=== PATIENT | male | born 1965 | race Caucasian/White ===

== ENCOUNTER 2018-02-28 21:08 | Inpatient (IN) | payer OTHER ==
[2018-02-28 21:26] LABS: ADD MAN DIFF? NO
[2018-02-28 21:29] LABS: BASOPHILS % 0.3 % (0.0-2.0); EOSINOPHILS % 0.5 % (0.0-7.0); HEMATOCRIT 39.2 % (42.0-52.0); HEMOGLOBIN 13.3 g/dl (14.0-18.0); LYMPHOCYTES # 0.9 10^3/ul (0.8-2.9); LYMPHOCYTES % 15.5 % (15.0-51.0); MEAN CORPUSCULAR HGB CONC 33.9 g/dl (32.0-37.0); MEAN CORPUSCULAR VOLUME 97.3 fl (82.0-101.0); MEAN PLATELET VOLUME 9.4 fl (7.4-10.4); MONOCYTE # 0.4 10^3/ul (0.3-0.9); MONOCYTES % 7.2 % (0.0-11.0); NEUTROPHIL # 4.6 10^3/ul (1.6-7.5); NEUTROPHILS % 76.2 % (39.0-77.0); PLATELET COUNT 184 10^3/UL (140-415); RED BLOOD COUNT 4.03 10^6/ul (4.70-6.10)
[2018-02-28] MEDS: SOD CHLORIDE 0.9% 1,000 ML IV (21:37)
[2018-02-28] MEDS: ONDANSETRON 4 MG INJ IV (21:37)
[2018-02-28] MEDS: LACTULOSE 30ML CUP NGT (21:37)
[2018-02-28 21:40] LABS: ADD UMIC YES; UR ASCORBIC ACID 40 mg/dL (NEGATIVE); UR BILIRUBIN (Dip) NEGATIVE (NEGATIVE); UR BLOOD (Dip) NEGATIVE (NEGATIVE); UR CLARITY CLEAR (CLEAR); UR COLOR YELLOW (YELLOW); UR GLUCOSE (Dip) 1+ mg/dL (NEGATIVE); UR KETONES (Dip) TRACE mg/dL (NEGATIVE); UR LEUKOCYTE ESTERASE (Dip) NEGATIVE Leu/ul (NEGATIVE); UR NITRITE (Dip) NEGATIVE (NEGATIVE); UR RBC 0 /HPF (0-5); UR SPECIFIC GRAVITY (Dip) 1.016 (1.003-1.030); UR TOTAL PROTEIN (Dip) 3+ mg/dl (NEGATIVE); UR UROBILINOGEN (Dip) NEGATIVE (NEGATIVE); UR WBC 1 /HPF (0-5)
[2018-02-28 21:49] LABS: AMMONIA 17 umol/l (9-30)
[2018-02-28 21:49] LABS: LACTIC ACID 1.3 mmol/L (0.5-2.0)
[2018-02-28 22:15] LABS: ALANINE AMINOTRANSFERASE 32 IU/L (13-69); ALBUMIN 3.4 g/dl (3.3-4.9); ALBUMIN/GLOBULIN RATIO 0.97; ALKALINE PHOSPHATASE 122 IU/L (42-121); ANION GAP 16 (8-16); ASPARTATE AMINO TRANSFERASE 29 IU/L (15-46); BILIRUBIN,INDIRECT 0.1 mg/dl (0-1.1); BILIRUBIN,TOTAL 0.1 mg/dl (0.2-1.3); BLOOD UREA NITROGEN 35 mg/dl (7-20); CALCIUM 9.2 mg/dl (8.4-10.2); CARBON DIOXIDE 25 mmol/L (21-31); CHLORIDE 109 mmol/L (97-110); CREATININE 2.36 mg/dl (0.61-1.24); GLUCOSE 135 mg/dl (70-220); LIPASE 130 U/L (23-300); POTASSIUM 4.1 mmol/L (3.5-5.1); SODIUM 146 mmol/L (135-144); TOTAL PROTEIN 6.9 g/dl (6.1-8.1)
[2018-02-28 22:25] LABS: TROPONIN-I < 0.010 ng/ml (0.000-0.120)
[2018-02-28] MEDS: LABETALOL HCL 20MG INJ IV ×2 (23:45→23:49)
[2018-03-01] MEDS ORDERED: LABETALOL HCL 20MG INJ IV
[2018-03-01] MEDS: SOD CHLORIDE 0.9% 500 ML IV (01:32)
[2018-03-01] MEDS: LABETALOL HCL 20MG INJ IV (01:37)
[2018-03-01] MEDS ORDERED: SOD CHLORIDE 0.9% 1,000 ML IV (02:49)
[2018-03-01] MEDS: BISACODYL 10 MG SUPP PR (03:00)
[2018-03-01] MEDS ORDERED: ONDANSETRON 4 MG INJ IV (03:00)
[2018-03-01] MEDS ORDERED: ACETAMINOPHEN 500 MG TAB PO (03:00)
[2018-03-01] MEDS ORDERED: NA PHOS DI BA RC (03:00)
[2018-03-01] MEDS ORDERED: NA PHOS M B RC (03:00)
[2018-03-01] MEDS ORDERED: NACL 0.9% 3 ML SYG IV (03:00)
[2018-03-01] MEDS ORDERED: ACETAMINOPHEN 325 MG TAB PO (03:00)
[2018-03-01] MEDS: DEXTROSE 5%-0.45% NACL 1,000 ML IV ×2 (03:00→12:55)
[2018-03-01] MEDS ORDERED: LORAZEPAM 2 MG INJ IM (03:00)
[2018-03-01] MEDS ORDERED: ARTIFICIAL TEARS 15 ML OPH BOTH EYES (04:00)
[2018-03-01 06:40] LABS: ADD MAN DIFF? NO
[2018-03-01 06:42] LABS: BASOPHILS % 0.4 % (0.0-2.0); EOSINOPHILS # 0.1 10^3/ul (0.0-0.5); EOSINOPHILS % 0.7 % (0.0-7.0); HEMOGLOBIN 11.6 g/dl (14.0-18.0); LYMPHOCYTES # 1.1 10^3/ul (0.8-2.9); LYMPHOCYTES % 15.7 % (15.0-51.0); MEAN CORPUSCULAR HEMOGLOBIN 32.9 pg (29.0-33.0); MEAN CORPUSCULAR HGB CONC 33.1 g/dl (32.0-37.0); MEAN CORPUSCULAR VOLUME 99.2 fl (82.0-101.0); MONOCYTE # 0.7 10^3/ul (0.3-0.9); MONOCYTES % 9.7 % (0.0-11.0); NEUTROPHIL # 5.1 10^3/ul (1.6-7.5); NEUTROPHILS % 73.2 % (39.0-77.0); POSITIVE DIFF @See below; RED BLOOD COUNT 3.53 10^6/ul (4.70-6.10); RED CELL DISTRIBUTION WIDTH 13.2 % (11.5-14.5)
[2018-03-01 06:42] LABS: WHITE BLOOD COUNT 6.9 10^3/ul (4.8-10.8)
[2018-03-01 06:53] LABS: PLATELET COUNT 147 10^3/UL (140-415)
[2018-03-01 07:09] LABS: AMMONIA 31 umol/l (9-30)
[2018-03-01 07:09] LABS: ANION GAP 10 (8-16); BLOOD UREA NITROGEN 32 mg/dl (7-20); CALCIUM 8.6 mg/dl (8.4-10.2); CARBON DIOXIDE 25 mmol/L (21-31); CHLORIDE 116 mmol/L (97-110); CREATININE 2.02 mg/dl (0.61-1.24); GLUCOSE 108 mg/dl (70-220); POTASSIUM 4.3 mmol/L (3.5-5.1); SODIUM 147 mmol/L (135-144)
[2018-03-01 07:12] LABS: PHENYTOIN (DILANTIN) 19.5 ug/ml (10.0-20.0)
[2018-03-01 07:13] LABS: VALPROATE 11 ug/ml (50-100)
[2018-03-01] MEDS: DIVALPROEX (EC) 500 MG TAB PO ×4 (09:00→21:00)
[2018-03-01] MEDS ORDERED: NON-FORMULARY/PATIENT OWN MED (Amino Acids/Protein Hydrolys (Pro-Stat Liquid) 30 ML) PO (09:00)
[2018-03-01] MEDS: MULTIVITAMINS THERAPEUTIC TAB PO (09:00)
[2018-03-01] MEDS ORDERED: NON-FORMULARY/PATIENT OWN MED (Cranberry Extract (Cranberry) 425 MG) PO (09:00)
[2018-03-01] MEDS: FAMOTIDINE 20 MG TAB PO (09:00)
[2018-03-01] MEDS: CALCIUM/VITAMIN D (500/200) TAB PO ×2 (10:00→21:00)
[2018-03-01 10:03] LABS: ADD UMIC YES; UR ASCORBIC ACID 40 mg/dL (NEGATIVE); UR BILIRUBIN (Dip) NEGATIVE (NEGATIVE); UR BLOOD (Dip) 1+ mg/dL (NEGATIVE); UR CLARITY CLEAR (CLEAR); UR COLOR YELLOW (YELLOW); UR GLUCOSE (Dip) 2+ mg/dL (NEGATIVE); UR KETONES (Dip) NEGATIVE (NEGATIVE); UR LEUKOCYTE ESTERASE (Dip) NEGATIVE Leu/ul (NEGATIVE); UR NITRITE (Dip) NEGATIVE (NEGATIVE); UR RBC 12 /HPF (0-5); UR SPECIFIC GRAVITY (Dip) 1.015 (1.003-1.030); UR TOTAL PROTEIN (Dip) 3+ mg/dl (NEGATIVE); UR UROBILINOGEN (Dip) NEGATIVE (NEGATIVE); UR WBC 4 /HPF (0-5)
[2018-03-01] MEDS: ASPIRIN 81 MG TAB PO (10:24)
[2018-03-01 11:08] LABS: SODIUM,URINE RANDOM 121 mmol/L (30-90)
[2018-03-01] MEDS ORDERED: PHENYTOIN 100 MG INJ IV ×2 (11:30→21:00)
[2018-03-01] MEDS: PHENYTOIN 300 MG in SOD CHLORIDE 0.9% 50 ML IV (14:36)
[2018-03-01] MEDS: DEXTROSE 5% 1,000 ML IV (19:22)
[2018-03-01] MEDS ORDERED: CEFTRIAXONE 1 GM INJ IVPB (20:00)
[2018-03-01] MEDS: CEFTRIAXONE 1 GM/NS 50 ML IVPB (20:28)
[2018-03-01] MEDS: FERROUS SULFATE (EC) 325 MG TAB PO (21:00)
[2018-03-01] MEDS ORDERED: PHENYTOIN 100 MG CAP PO (21:00)
[2018-03-01] MEDS: MAGNESIUM HYDROXIDE 30ML CUP PO (21:00)
[2018-03-01] MEDS: PHENOBARBITAL 32.4 MG TAB PO (21:00)
[2018-03-01] MEDS: ATORVASTATIN 20 MG TAB PO (21:00)
[2018-03-01] MEDS: DOCUSATE SODIUM 100 MG CAP PO (21:00)
[2018-03-01] MEDS: LEVETIRACETAM 500 MG (PMX) 100 ML IVPB (21:19)
[2018-03-02] MEDS: SOD CHLORIDE 0.9% IV (00:39)
[2018-03-02] MEDS: PHENYTOIN IV (00:39)
[2018-03-02] MEDS: BISACODYL 10 MG SUPP PR (03:21)
[2018-03-02 05:57] LABS: ADD MAN DIFF? NO; HAAIG REFLEX REFLEX FILED
[2018-03-02 06:08] LABS: WHITE BLOOD COUNT 10.8 10^3/ul (4.8-10.8)
[2018-03-02 06:08] LABS: BASOPHILS % 0.3 % (0.0-2.0); HEMATOCRIT 33.3 % (42.0-52.0); HEMOGLOBIN 11.2 g/dl (14.0-18.0); LYMPHOCYTES # 1.4 10^3/ul (0.8-2.9); LYMPHOCYTES % 12.6 % (15.0-51.0); MEAN CORPUSCULAR HEMOGLOBIN 32.1 pg (29.0-33.0); MEAN CORPUSCULAR HGB CONC 33.6 g/dl (32.0-37.0); MEAN CORPUSCULAR VOLUME 95.4 fl (82.0-101.0); MEAN PLATELET VOLUME 10.3 fl (7.4-10.4); MONOCYTE # 0.7 10^3/ul (0.3-0.9); MONOCYTES % 6.9 % (0.0-11.0); NEUTROPHIL # 8.6 10^3/ul (1.6-7.5); NEUTROPHILS % 79.8 % (39.0-77.0); PLATELET COUNT 162 10^3/UL (140-415); RED BLOOD COUNT 3.49 10^6/ul (4.70-6.10); RED CELL DISTRIBUTION WIDTH 12.9 % (11.5-14.5)
[2018-03-02 06:31] LABS: PROTIME 15.4 Sec (11.9-14.9); PT RATIO 1.2
[2018-03-02 06:37] LABS: CK INDEX 0.4; CREATINE KINASE 235 IU/L (23-200)
[2018-03-02 06:40] LABS: AMMONIA 22 umol/l (9-30)
[2018-03-02 06:50] LABS: TROPONIN-I 0.026 ng/ml (0.000-0.120)
[2018-03-02 06:52] LABS: HEMOGLOBIN A1C 5.1 % (0-5.9)
[2018-03-02 07:40] LABS: PHOSPHORUS 2.1 mg/dl (2.5-4.9)
[2018-03-02 07:40] LABS: ANION GAP 13 (8-16); BLOOD UREA NITROGEN 26 mg/dl (7-20); CALCIUM 8.3 mg/dl (8.4-10.2); CARBON DIOXIDE 23 mmol/L (21-31); CHLORIDE 113 mmol/L (97-110); CREATININE 2.06 mg/dl (0.61-1.24); GLUCOSE 114 mg/dl (70-220); MAGNESIUM 1.8 mg/dl (1.7-2.5); POTASSIUM 3.6 mmol/L (3.5-5.1); SODIUM 145 mmol/L (135-144)
[2018-03-02] MEDS: LEVETIRACETAM 500 MG (PMX) 100 ML IVPB ×2 (08:11→21:08)
[2018-03-02] MEDS: ASPIRIN 81 MG TAB PO (08:14)
[2018-03-02] MEDS: FAMOTIDINE 20 MG TAB PO (08:14)
[2018-03-02] MEDS: DIVALPROEX (EC) 500 MG TAB PO (08:14)
[2018-03-02] MEDS: MULTIVITAMINS THERAPEUTIC TAB PO (08:14)
[2018-03-02] MEDS: CALCIUM/VITAMIN D (500/200) TAB PO ×2 (08:14→21:00)
[2018-03-02] MEDS: PHENYTOIN 300 MG in SOD CHLORIDE 0.9% 50 ML IV (08:57)
[2018-03-02] MEDS: ACETAMINOPHEN 650 MG SUPP PR (10:29)
[2018-03-02] MEDS ORDERED: SOD PHOS MONO/DIBAS 250 MG TAB NGT (11:00)
[2018-03-02 11:45] LABS: COMPLEMENT C3 145 mg/dl (88-165); COMPLEMENT C4 41 mg/dl (14-44)
[2018-03-02 12:13] LABS: HEPATITIS B SURFACE ANTIGEN NEGATIVE (NEGATIVE)
[2018-03-02 12:19] LABS: HIV 1&2 ANTIBODY NEGATIVE (NEGATIVE)
[2018-03-02 12:31] LABS: HEPATITIS B CORE ANTIBODY NEGATIVE (NEGATIVE); HEPATITIS C VIRAL ANTIBODY NEGATIVE (NEGATIVE)
[2018-03-02] MEDS: DEXTROSE 5% 1,000 ML IV ×2 (14:35→21:36)
[2018-03-02 16:06] LABS: CREATININE, RANDOM URINE 85 mg/dL (20-370); MICROALBUMIN 136.1 mg/dL; MICROALBUMIN/CREATININE RATIO 1601 (<30)
[2018-03-02] MEDS: PIPER-TAZO 3.375 GM IV (PMX) 100 ML IVPB ×2 (17:52→23:44)
[2018-03-02] MEDS: SOD CHLORIDE 0.45% 1,000 ML IV (17:52)
[2018-03-02] MEDS: POTASSIUM PHOSPHATE 20 MEQ in SOD CHLORIDE 0.9% 250 ML IVPB (18:46)
[2018-03-02] MEDS ORDERED: ALBUTEROL/IPRATROPIUM (NEB) 3 ML AMP HHN (19:00)
[2018-03-02] MEDS: DOCUSATE SODIUM 100 MG CAP PO (21:00)
[2018-03-02] MEDS: MAGNESIUM HYDROXIDE 30ML CUP PO (21:00)
[2018-03-02] MEDS: ATORVASTATIN 20 MG TAB PO (21:00)
[2018-03-02] MEDS: FERROUS SULFATE (EC) 325 MG TAB PO (21:00)
[2018-03-03] MEDS: BISACODYL 10 MG SUPP PR (06:11)
[2018-03-03] MEDS: PIPER-TAZO 3.375 GM IV (PMX) 100 ML IVPB ×3 (06:11→17:43)
[2018-03-03] MEDS: SOD CHLORIDE 0.45% 1,000 ML IV (07:48)
[2018-03-03] MEDS ORDERED: VANCOMYCIN 1 GM (PMX) 250 ML IVPB (09:00)
[2018-03-03 09:14] LABS: ADD MAN DIFF? NO
[2018-03-03 09:20] LABS: BASOPHIL # 0.1 10^3/ul (0.0-0.1); BASOPHILS % 0.5 % (0.0-2.0); EOSINOPHILS # 0.2 10^3/ul (0.0-0.5); EOSINOPHILS % 2.1 % (0.0-7.0); HEMATOCRIT 29.9 % (42.0-52.0); HEMOGLOBIN 9.9 g/dl (14.0-18.0); LYMPHOCYTES # 1.3 10^3/ul (0.8-2.9); LYMPHOCYTES % 14.2 % (15.0-51.0); MEAN CORPUSCULAR HEMOGLOBIN 32.5 pg (29.0-33.0); MEAN CORPUSCULAR HGB CONC 33.1 g/dl (32.0-37.0); MEAN PLATELET VOLUME 11.1 fl (7.4-10.4); MONOCYTE # 0.5 10^3/ul (0.3-0.9); MONOCYTES % 5.8 % (0.0-11.0); NUCLEATED RED BLOOD CELLS% 0.2 /100WBC (0.0-0.0); PLATELET COUNT 137 10^3/UL (140-415); POSITIVE DIFF @See below; RED BLOOD COUNT 3.05 10^6/ul (4.70-6.10); RED CELL DISTRIBUTION WIDTH 13.2 % (11.5-14.5)
[2018-03-03 09:20] LABS: WHITE BLOOD COUNT 9.2 10^3/ul (4.8-10.8)
[2018-03-03] MEDS: LEVETIRACETAM 500 MG (PMX) 100 ML IVPB ×2 (09:46→22:12)
[2018-03-03 10:08] LABS: ANION GAP 12 (8-16); BLOOD UREA NITROGEN 35 mg/dl (7-20); CALCIUM 7.4 mg/dl (8.4-10.2); CARBON DIOXIDE 23 mmol/L (21-31); CHLORIDE 112 mmol/L (97-110); CREATININE 2.66 mg/dl (0.61-1.24); GLUCOSE 65 mg/dl (70-220); MAGNESIUM 1.9 mg/dl (1.7-2.5); PHOSPHORUS 4.7 mg/dl (2.5-4.9); POTASSIUM 3.9 mmol/L (3.5-5.1); SODIUM 143 mmol/L (135-144)
[2018-03-03 13:31] LABS: ANA SCREEN NEGATIVE (NEGATIVE)
[2018-03-03 15:12] LABS: RAPID PLASMA REAGIN NONREACTIVE (NR)
[2018-03-03] MEDS: FAMOTIDINE 20 MG TAB PO (15:37)
[2018-03-03] MEDS: MULTIVITAMINS THERAPEUTIC TAB PO (15:37)
[2018-03-03] MEDS: ASPIRIN 81 MG TAB PO (15:37)
[2018-03-03] MEDS: CALCIUM/VITAMIN D (500/200) TAB PO ×2 (15:37→21:40)
[2018-03-03] MEDS: DEXTROSE 5%-0.45% NACL 1,000 ML IV (19:30)
[2018-03-03] MEDS: FERROUS SULFATE (EC) 325 MG TAB PO (21:40)
[2018-03-03] MEDS: ATORVASTATIN 20 MG TAB PO (21:40)
[2018-03-03] MEDS: DOCUSATE SODIUM 100 MG CAP PO (21:41)
[2018-03-03] MEDS: MAGNESIUM HYDROXIDE 30ML CUP PO (21:41)
[2018-03-04] MEDS: BISACODYL 10 MG SUPP PR (06:09)
[2018-03-04] MEDS: PIPER-TAZO 3.375 GM IV (PMX) 100 ML IVPB ×3 (06:09→17:39)
[2018-03-04 06:29] LABS: ADD MAN DIFF? NO
[2018-03-04 06:34] LABS: WHITE BLOOD COUNT 5.4 10^3/ul (4.8-10.8)
[2018-03-04 06:34] LABS: BASOPHILS % 0.6 % (0.0-2.0); EOSINOPHILS # 0.3 10^3/ul (0.0-0.5); EOSINOPHILS % 4.8 % (0.0-7.0); HEMATOCRIT 28.9 % (42.0-52.0); HEMOGLOBIN 9.7 g/dl (14.0-18.0); LYMPHOCYTES % 18.8 % (15.0-51.0); MEAN CORPUSCULAR HEMOGLOBIN 32.3 pg (29.0-33.0); MEAN CORPUSCULAR HGB CONC 33.6 g/dl (32.0-37.0); MEAN CORPUSCULAR VOLUME 96.3 fl (82.0-101.0); MEAN PLATELET VOLUME 10.3 fl (7.4-10.4); MONOCYTE # 0.3 10^3/ul (0.3-0.9); MONOCYTES % 5.2 % (0.0-11.0); NEUTROPHIL # 3.8 10^3/ul (1.6-7.5); NEUTROPHILS % 70.2 % (39.0-77.0); PLATELET COUNT 133 10^3/UL (140-415)
[2018-03-04 07:03] LABS: ANION GAP 9 (8-16); BLOOD UREA NITROGEN 36 mg/dl (7-20); CALCIUM 7.6 mg/dl (8.4-10.2); CARBON DIOXIDE 24 mmol/L (21-31); CHLORIDE 116 mmol/L (97-110); CREATININE 2.41 mg/dl (0.61-1.24); GLUCOSE 98 mg/dl (70-220); POTASSIUM 3.8 mmol/L (3.5-5.1); SODIUM 145 mmol/L (135-144)
[2018-03-04] MEDS: DEXTROSE 5%-0.45% NACL 1,000 ML IV ×2 (09:09→21:08)
[2018-03-04] MEDS: LEVETIRACETAM 500 MG (PMX) 100 ML IVPB ×2 (09:09→21:08)
[2018-03-04] MEDS: MULTIVITAMINS THERAPEUTIC TAB PO (09:09)
[2018-03-04] MEDS: CALCIUM/VITAMIN D (500/200) TAB PO ×2 (09:09→21:08)
[2018-03-04] MEDS: FAMOTIDINE 20 MG TAB PO (09:09)
[2018-03-04] MEDS: ASPIRIN 81 MG TAB PO (09:09)
[2018-03-04 18:01] LABS: ALANINE AMINOTRANSFERASE 36 IU/L (13-69); ALBUMIN 2.4 g/dl (3.3-4.9); ALKALINE PHOSPHATASE 76 IU/L (42-121); ASPARTATE AMINO TRANSFERASE 67 IU/L (15-46); BILIRUBIN,INDIRECT 0.2 mg/dl (0-1.1); BILIRUBIN,TOTAL 0.2 mg/dl (0.2-1.3); TOTAL PROTEIN 5.3 g/dl (6.1-8.1)
[2018-03-04] MEDS: PHENOBARBITAL 32.4 MG TAB PO (21:00)
[2018-03-04] MEDS: MAGNESIUM HYDROXIDE 30ML CUP PO (21:08)
[2018-03-04] MEDS: FERROUS SULFATE (EC) 325 MG TAB PO (21:08)
[2018-03-04] MEDS: DOCUSATE SODIUM 100 MG CAP PO (21:08)
[2018-03-04] MEDS: ATORVASTATIN 20 MG TAB PO (21:08)
[2018-03-05] MEDS: BISACODYL 10 MG SUPP PR (02:21)
[2018-03-05] MEDS: PIPER-TAZO 3.375 GM IV (PMX) 100 ML IVPB ×2 (02:21→10:06)
[2018-03-05 05:37] LABS: ADD MAN DIFF? NO
[2018-03-05 05:48] LABS: WHITE BLOOD COUNT 5.1 10^3/ul (4.8-10.8)
[2018-03-05 05:48] LABS: BASOPHILS % 0.6 % (0.0-2.0); EOSINOPHILS # 0.2 10^3/ul (0.0-0.5); EOSINOPHILS % 4.7 % (0.0-7.0); HEMOGLOBIN 9.9 g/dl (14.0-18.0); LYMPHOCYTES # 1.1 10^3/ul (0.8-2.9); LYMPHOCYTES % 21.2 % (15.0-51.0); MEAN CORPUSCULAR HGB CONC 34.1 g/dl (32.0-37.0); MEAN CORPUSCULAR VOLUME 96.7 fl (82.0-101.0); MEAN PLATELET VOLUME 10.2 fl (7.4-10.4); MONOCYTE # 0.3 10^3/ul (0.3-0.9); MONOCYTES % 6.5 % (0.0-11.0); NEUTROPHIL # 3.4 10^3/ul (1.6-7.5); NEUTROPHILS % 66.4 % (39.0-77.0); PLATELET COUNT 154 10^3/UL (140-415)
[2018-03-05 06:28] LABS: ANION GAP 8 (8-16); BLOOD UREA NITROGEN 24 mg/dl (7-20); CALCIUM 7.9 mg/dl (8.4-10.2); CARBON DIOXIDE 25 mmol/L (21-31); CHLORIDE 116 mmol/L (97-110); GLUCOSE 91 mg/dl (70-220); POTASSIUM 3.5 mmol/L (3.5-5.1); SODIUM 145 mmol/L (135-144)
[2018-03-05] MEDS: CALCIUM/VITAMIN D (500/200) TAB PO (08:39)
[2018-03-05] MEDS: MULTIVITAMINS THERAPEUTIC TAB PO (08:39)
[2018-03-05] MEDS: FAMOTIDINE 20 MG TAB PO (08:39)
[2018-03-05] MEDS: LEVETIRACETAM 500 MG (PMX) 100 ML IVPB (08:39)
[2018-03-05] MEDS: ASPIRIN 81 MG TAB PO (08:39)
[2018-03-05] MEDS: PHENYTOIN 100 MG CAP PO (10:06)
[2018-03-05] MEDS: DEXTROSE 5%-0.45% NACL 1,000 ML IV (13:54)
[2018-03-05] MEDS: hydrALAzine 20 MG INJ IV (17:05)
[2018-03-05] MEDS ORDERED: POTASSIUM CHLORIDE 10 MEQ in DEXTROSE 5%-0.225% NACL 1,000 ML IV (18:00)
== END 2018-03-05 17:48 | DRG 871 ==
LOC: MS4 03-01 01:20 → E/R 21:08
DX: A41.9 Sepsis, unspecified organism (principal); G93.41 Metabolic encephalopathy; N17.0 Acute kidney failure with tubular necrosis; K81.0 Acute cholecystitis; I16.1 Hypertensive emergency; E87.0 Hyperosmolality and hypernatremia; I69.354 Hemiplegia and hemiparesis following cerebral infarction affecting left non-dominant side; I12.9 Hypertensive chronic kidney disease with stage 1 through stage 4 chronic kidney disease, or unspecified chronic kidney disease; N18.9 Chronic kidney disease, unspecified; Z66 Do not resuscitate; E86.0 Dehydration; M81.0 Age-related osteoporosis without current pathological fracture; G93.89 Other specified disorders of brain
CPT/HCPCS: 36415; 70450; 76705; 76775; 78226; 80048; 80053; 80076; 80164; 80184; 80185; 81001; 82043; 82140; 82550; 82553; 83036; 83605; 83690; 83735; 84100; 84300; 84443; 84484; 85025; 85610; 86038; 86160; 86592; 86703; 86704; 86709; 86803; 87040; 87086; 87340; 92610; 93005; 96374; 96375; 99285-25

== ENCOUNTER 2018-04-01 04:01 | Inpatient (IN) | payer OTHER ==
[2018-04-01 04:34] LABS: ADD MAN DIFF? NO
[2018-04-01 04:37] LABS: BASOPHILS % 0.3 % (0.0-2.0); HEMATOCRIT 28.9 % (42.0-52.0); HEMOGLOBIN 9.8 g/dl (14.0-18.0); LYMPHOCYTES # 1.1 10^3/ul (0.8-2.9); MEAN CORPUSCULAR HEMOGLOBIN 32.9 pg (29.0-33.0); MEAN CORPUSCULAR HGB CONC 33.9 g/dl (32.0-37.0); MEAN PLATELET VOLUME 11.6 fl (7.4-10.4); MONOCYTE # 0.8 10^3/ul (0.3-0.9); MONOCYTES % 5.5 % (0.0-11.0); NEUTROPHIL # 12.9 10^3/ul (1.6-7.5); NEUTROPHILS % 86.1 % (39.0-77.0); PLATELET COUNT 184 10^3/UL (140-415); RED BLOOD COUNT 2.98 10^6/ul (4.70-6.10); RED CELL DISTRIBUTION WIDTH 13.8 % (11.5-14.5)
[2018-04-01] MEDS: SODIUM CHLORIDE 0.9% 1L BAG IV* (04:37)
[2018-04-01 04:57] LABS: PARTIAL THROMBOPLASTIN TIME 34.9 Sec (25.0-35.0)
[2018-04-01 05:10] LABS: LACTIC ACID 1.7 mmol/L (0.5-2.0)
[2018-04-01 05:22] LABS: URINE BLOOD (Dip) POC 1+ (NEGATIVE); URINE GLUCOSE (Dip) POC Negative (NEGATIVE); URINE KETONES (Dip) POC Trace (NEGATIVE); URINE LEUKOCYTE EST (Dip) POC Trace (NEGATIVE); URINE NITRITE (Dip) POC Negative (NEGATIVE); URINE TOTAL PROTEIN POC 3+ (NEGATIVE)
[2018-04-01 05:22] LABS: URINE PH (Dip) POC 5.5 (5.0-8.5)
[2018-04-01 05:24] LABS: TROPONIN-I 0.058 ng/ml (0.000-0.120)
[2018-04-01 05:35] LABS: URINE PH (Dip) POC 5.5 (5.0-8.5)
[2018-04-01 05:35] LABS: URINE BLOOD (Dip) POC 1+ (NEGATIVE); URINE GLUCOSE (Dip) POC Negative (NEGATIVE); URINE KETONES (Dip) POC 1+ (NEGATIVE); URINE LEUKOCYTE EST (Dip) POC Trace (NEGATIVE); URINE NITRITE (Dip) POC Negative (NEGATIVE); URINE TOTAL PROTEIN POC 3+ (NEGATIVE)
[2018-04-01] MEDS: PIPER-TAZO 2.25 GM (PMX) 50 ML IVPB (05:51)
[2018-04-01] MEDS: ACETAMINOPHEN 650 MG SUPP PR (05:51)
[2018-04-01] MEDS: VANCOMYCIN 1 GM (PMX) 250 ML IVPB (06:00)
[2018-04-01 06:01] LABS: AMMONIA < 9 umol/l (9-30)
[2018-04-01 06:02] LABS: PHENYTOIN (DILANTIN) 19.1 ug/ml (10.0-20.0)
[2018-04-01 06:02] LABS: MAGNESIUM 2.1 mg/dl (1.7-2.5)
[2018-04-01 06:04] LABS: ADD UMIC YES; UR ASCORBIC ACID 40 mg/dL (NEGATIVE); UR BACTERIA MANY /HPF (NONE SEEN); UR BILIRUBIN (Dip) NEGATIVE (NEGATIVE); UR BLOOD (Dip) NEGATIVE (NEGATIVE); UR CLARITY CLOUDY (CLEAR); UR COLOR YELLOW (YELLOW); UR GLUCOSE (Dip) NEGATIVE (NEGATIVE); UR KETONES (Dip) TRACE mg/dL (NEGATIVE); UR LEUKOCYTE ESTERASE (Dip) 1+ Leu/ul (NEGATIVE); UR MUCUS FEW /HPF (NONE SEEN); UR NITRITE (Dip) NEGATIVE (NEGATIVE); UR RBC 6 /HPF (0-5); UR SPECIFIC GRAVITY (Dip) 1.018 (1.003-1.030); UR SQUAMOUS EPITHELIAL CELL FEW /HPF (FEW); UR TOTAL PROTEIN (Dip) 3+ mg/dl (NEGATIVE); UR UROBILINOGEN (Dip) NEGATIVE (NEGATIVE); UR WBC 31 /HPF (0-5)
[2018-04-01 06:05] LABS: VALPROATE < 10 ug/ml (50-100)
[2018-04-01 06:17] LABS: LACTIC ACID 1.3 mmol/L (0.5-2.0)
[2018-04-01 06:26] LABS: ALANINE AMINOTRANSFERASE 30 IU/L (13-69); ALBUMIN 3.4 g/dl (3.3-4.9); ALBUMIN/GLOBULIN RATIO 0.87; ALKALINE PHOSPHATASE 127 IU/L (42-121); ANION GAP 14 (8-16); ASPARTATE AMINO TRANSFERASE 53 IU/L (15-46); BILIRUBIN,INDIRECT 0.1 mg/dl (0-1.1); BILIRUBIN,TOTAL 0.1 mg/dl (0.2-1.3); BLOOD UREA NITROGEN 53 mg/dl (7-20); CALCIUM 10.8 mg/dl (8.4-10.2); CARBON DIOXIDE 23 mmol/L (21-31); CHLORIDE 118 mmol/L (97-110); CREATININE 2.88 mg/dl (0.61-1.24); GLUCOSE 106 mg/dl (70-220); POTASSIUM 3.6 mmol/L (3.5-5.1); SODIUM 151 mmol/L (135-144); TOTAL PROTEIN 7.3 g/dl (6.1-8.1)
[2018-04-01] MEDS ORDERED: NACL 0.9% 3 ML SYG IV (09:00)
[2018-04-01] MEDS ORDERED: ACETAMINOPHEN 500 MG TAB PO (09:00)
[2018-04-01] MEDS ORDERED: NON-FORMULARY/PATIENT OWN MED (Divalproex Sodium* 500 MG) PO (09:00)
[2018-04-01] MEDS ORDERED: ACETAMINOPHEN 325 MG TAB PO (09:00)
[2018-04-01] MEDS ORDERED: DIVALPROEX (EC) 500 MG TAB PO (09:00)
[2018-04-01] MEDS ORDERED: ONDANSETRON 4 MG INJ IV (09:00)
[2018-04-01] MEDS: ASPIRIN 81 MG TAB PO (10:00)
[2018-04-01] MEDS: MULTIVITAMINS THERAPEUTIC TAB PO (10:00)
[2018-04-01] MEDS: FAMOTIDINE 20 MG TAB PO (10:00)
[2018-04-01] MEDS: PHENYTOIN 100 MG CAP PO (10:00)
[2018-04-01] MEDS: CEFTRIAXONE 1 GM/50 ML (PMX) 50 ML IVPB (10:23)
[2018-04-01 10:26] LABS: LACTIC ACID 0.9 mmol/L (0.5-2.0)
[2018-04-01 11:48] LABS: PROTIME 20.4 Sec (11.9-14.9); PT RATIO 1.6
[2018-04-01 11:49] LABS: INR 1.71
[2018-04-01 12:58] LABS: LACTIC ACID 0.9 mmol/L (0.5-2.0)
[2018-04-01] MEDS ORDERED: PHENYTOIN 100 MG INJ IV (14:00)
[2018-04-01] MEDS: D5W-0.45 NACL + KCL 20 MEQ 1,000 ML IV (14:07)
[2018-04-01] MEDS: PHENYTOIN 100 MG INJ IV ×2 (14:29→22:18)
[2018-04-01] MEDS ORDERED: LEVETIRACETAM 500 MG (PMX) 100 ML IVPB (21:00)
[2018-04-01] MEDS: PHENOBARBITAL 32.4 MG TAB PO (21:00)
[2018-04-01] MEDS: DOCUSATE SODIUM 100 MG CAP PO (21:00)
[2018-04-01] MEDS: MAGNESIUM HYDROXIDE 30ML CUP PO (21:00)
[2018-04-01] MEDS ORDERED: PHENYTOIN 100 MG CAP PO (21:00)
[2018-04-01] MEDS: FERROUS SULFATE (EC) 325 MG TAB PO (21:00)
[2018-04-01] MEDS: ATORVASTATIN 20 MG TAB PO (21:00)
[2018-04-01] MEDS: LEVETIRACETAM 500 MG (PMX) 100 ML IVPB (21:12)
[2018-04-01] MEDS: BISACODYL 10 MG SUPP PR (21:36)
[2018-04-02] MEDS: D5W-0.45 NACL + KCL 20 MEQ 1,000 ML IV ×2 (03:26→13:46)
[2018-04-02] MEDS: PHENYTOIN 100 MG INJ IV ×3 (06:15→22:59)
[2018-04-02 06:51] LABS: PHENOBARBITAL 45.7 mg/L (15.0-40.0)
[2018-04-02 07:13] LABS: ADD MAN DIFF? NO
[2018-04-02 07:17] LABS: BASOPHILS % 0.3 % (0.0-2.0); EOSINOPHILS # 0.2 10^3/ul (0.0-0.5); EOSINOPHILS % 1.7 % (0.0-7.0); HEMATOCRIT 26.2 % (42.0-52.0); HEMOGLOBIN 8.4 g/dl (14.0-18.0); LYMPHOCYTES % 10.5 % (15.0-51.0); MEAN CORPUSCULAR HEMOGLOBIN 32.1 pg (29.0-33.0); MEAN CORPUSCULAR HGB CONC 32.1 g/dl (32.0-37.0); MEAN PLATELET VOLUME 11.2 fl (7.4-10.4); MONOCYTE # 0.4 10^3/ul (0.3-0.9); MONOCYTES % 4.2 % (0.0-11.0); NEUTROPHIL # 7.7 10^3/ul (1.6-7.5); NEUTROPHILS % 82.9 % (39.0-77.0); PLATELET COUNT 131 10^3/UL (140-415); RED BLOOD COUNT 2.62 10^6/ul (4.70-6.10)
[2018-04-02 07:17] LABS: WHITE BLOOD COUNT 9.3 10^3/ul (4.8-10.8)
[2018-04-02 07:44] LABS: ALANINE AMINOTRANSFERASE 50 IU/L (13-69); ALBUMIN 2.9 g/dl (3.3-4.9); ALKALINE PHOSPHATASE 106 IU/L (42-121); ANION GAP 11 (8-16); ASPARTATE AMINO TRANSFERASE 96 IU/L (15-46); BLOOD UREA NITROGEN 50 mg/dl (7-20); CALCIUM 9.4 mg/dl (8.4-10.2); CARBON DIOXIDE 23 mmol/L (21-31); CHLORIDE 121 mmol/L (97-110); CREATININE 2.42 mg/dl (0.61-1.24); GLUCOSE 134 mg/dl (70-220); MAGNESIUM 2.1 mg/dl (1.7-2.5); POTASSIUM 3.5 mmol/L (3.5-5.1); SODIUM 151 mmol/L (135-144); TOTAL PROTEIN 6.5 g/dl (6.1-8.1)
[2018-04-02] MEDS: LEVETIRACETAM 500 MG (PMX) 100 ML IVPB ×2 (09:47→21:42)
[2018-04-02 09:48] LABS: ADD MAN DIFF? NO
[2018-04-02 09:51] LABS: WHITE BLOOD COUNT 8.8 10^3/ul (4.8-10.8)
[2018-04-02 09:51] LABS: BASOPHILS % 0.3 % (0.0-2.0); EOSINOPHILS # 0.2 10^3/ul (0.0-0.5); EOSINOPHILS % 1.8 % (0.0-7.0); HEMATOCRIT 27.5 % (42.0-52.0); LYMPHOCYTES # 0.9 10^3/ul (0.8-2.9); LYMPHOCYTES % 9.9 % (15.0-51.0); MEAN CORPUSCULAR HGB CONC 32.7 g/dl (32.0-37.0); MEAN CORPUSCULAR VOLUME 100.7 fl (82.0-101.0); MEAN PLATELET VOLUME 10.5 fl (7.4-10.4); MONOCYTE # 0.4 10^3/ul (0.3-0.9); NEUTROPHIL # 7.3 10^3/ul (1.6-7.5); NEUTROPHILS % 83.4 % (39.0-77.0); PLATELET COUNT 152 10^3/UL (140-415); RED BLOOD COUNT 2.73 10^6/ul (4.70-6.10); RED CELL DISTRIBUTION WIDTH 14.1 % (11.5-14.5)
[2018-04-02 10:07] LABS: ANION GAP 9 (8-16); BLOOD UREA NITROGEN 51 mg/dl (7-20); CALCIUM 9.1 mg/dl (8.4-10.2); CARBON DIOXIDE 24 mmol/L (21-31); CHLORIDE 122 mmol/L (97-110); GLUCOSE 137 mg/dl (70-220); POTASSIUM 3.8 mmol/L (3.5-5.1); SODIUM 151 mmol/L (135-144)
[2018-04-02 10:08] LABS: AMMONIA 10 umol/l (9-30)
[2018-04-02 10:08] LABS: LACTIC ACID 0.8 mmol/L (0.5-2.0)
[2018-04-02 10:19] LABS: TROPONIN-I 0.011 ng/ml (0.000-0.120)
[2018-04-02] MEDS: DEXTROSE 5% 1,000 ML IV ×2 (10:21→23:20)
[2018-04-02] MEDS: ASPIRIN 81 MG TAB PO (11:05)
[2018-04-02] MEDS: FAMOTIDINE 20 MG TAB PO (11:06)
[2018-04-02] MEDS: MULTIVITAMINS THERAPEUTIC TAB PO (11:06)
[2018-04-02] MEDS: CEFTRIAXONE 1 GM/50 ML (PMX) 50 ML IVPB (11:13)
[2018-04-02] MEDS: ATORVASTATIN 20 MG TAB PO (21:00)
[2018-04-02] MEDS: DOCUSATE SODIUM 100 MG CAP PO (21:00)
[2018-04-02] MEDS: MAGNESIUM HYDROXIDE 30ML CUP PO (21:00)
[2018-04-02] MEDS: FERROUS SULFATE (EC) 325 MG TAB PO (21:00)
[2018-04-02] MEDS: BISACODYL 10 MG SUPP PR ×2 (21:00)
[2018-04-03] MEDS: PHENYTOIN 100 MG INJ IV ×4 (00:05→21:34)
[2018-04-03] MEDS: DEXTROSE 5% 1,000 ML IV ×2 (01:56→21:23)
[2018-04-03] MEDS: MULTIVITAMINS THERAPEUTIC TAB PO (09:00)
[2018-04-03] MEDS: FAMOTIDINE 20 MG TAB PO (09:00)
[2018-04-03] MEDS: ASPIRIN 81 MG TAB PO (09:00)
[2018-04-03 09:11] LABS: ADD MAN DIFF? NO
[2018-04-03 09:20] LABS: BASOPHILS % 0.3 % (0.0-2.0); EOSINOPHILS # 0.3 10^3/ul (0.0-0.5); EOSINOPHILS % 4.5 % (0.0-7.0); HEMATOCRIT 24.8 % (42.0-52.0); HEMOGLOBIN 8.1 g/dl (14.0-18.0); LYMPHOCYTES # 1.3 10^3/ul (0.8-2.9); LYMPHOCYTES % 17.7 % (15.0-51.0); MEAN CORPUSCULAR HEMOGLOBIN 32.9 pg (29.0-33.0); MEAN CORPUSCULAR HGB CONC 32.7 g/dl (32.0-37.0); MEAN CORPUSCULAR VOLUME 100.8 fl (82.0-101.0); MEAN PLATELET VOLUME 11.7 fl (7.4-10.4); MONOCYTE # 0.4 10^3/ul (0.3-0.9); MONOCYTES % 5.9 % (0.0-11.0); NEUTROPHIL # 5.1 10^3/ul (1.6-7.5); NEUTROPHILS % 71.2 % (39.0-77.0); PLATELET COUNT 160 10^3/UL (140-415); RED BLOOD COUNT 2.46 10^6/ul (4.70-6.10); RED CELL DISTRIBUTION WIDTH 14.2 % (11.5-14.5)
[2018-04-03 09:20] LABS: WHITE BLOOD COUNT 7.1 10^3/ul (4.8-10.8)
[2018-04-03] MEDS: LEVETIRACETAM 500 MG (PMX) 100 ML IVPB ×2 (09:28→21:23)
[2018-04-03 10:04] LABS: ANION GAP 11 (8-16); BLOOD UREA NITROGEN 38 mg/dl (7-20); CARBON DIOXIDE 23 mmol/L (21-31); CHLORIDE 118 mmol/L (97-110); CREATININE 1.84 mg/dl (0.61-1.24); GLUCOSE 113 mg/dl (70-220); POTASSIUM 3.5 mmol/L (3.5-5.1); SODIUM 148 mmol/L (135-144)
[2018-04-03] MEDS: CEFTRIAXONE 1 GM/50 ML (PMX) 50 ML IVPB (11:52)
[2018-04-03] MEDS: BISACODYL 10 MG SUPP PR (21:00)
[2018-04-03] MEDS: DOCUSATE SODIUM 100 MG CAP PO (21:00)
[2018-04-03] MEDS: MAGNESIUM HYDROXIDE 30ML CUP PO (21:28)
[2018-04-03] MEDS: ATORVASTATIN 20 MG TAB PO (21:29)
[2018-04-03] MEDS: FERROUS SULFATE (EC) 325 MG TAB PO (21:29)
[2018-04-03] MEDS: PHENOBARBITAL 32.4 MG TAB PO (21:29)
[2018-04-04] MEDS: PHENYTOIN 100 MG INJ IV (05:34)
[2018-04-04 09:49] LABS: ADD MAN DIFF? NO
[2018-04-04] MEDS: ASPIRIN 81 MG TAB PO (09:51)
[2018-04-04] MEDS: LEVETIRACETAM 500 MG (PMX) 100 ML IVPB (09:52)
[2018-04-04] MEDS: FAMOTIDINE 20 MG TAB PO (09:52)
[2018-04-04] MEDS: MULTIVITAMINS THERAPEUTIC TAB PO (09:52)
[2018-04-04 09:55] LABS: BASOPHILS % 0.5 % (0.0-2.0); EOSINOPHILS # 0.2 10^3/ul (0.0-0.5); EOSINOPHILS % 5.5 % (0.0-7.0); HEMATOCRIT 29.1 % (42.0-52.0); HEMOGLOBIN 9.5 g/dl (14.0-18.0); LYMPHOCYTES # 0.8 10^3/ul (0.8-2.9); LYMPHOCYTES % 18.2 % (15.0-51.0); MEAN CORPUSCULAR HEMOGLOBIN 32.3 pg (29.0-33.0); MEAN CORPUSCULAR HGB CONC 32.6 g/dl (32.0-37.0); MEAN PLATELET VOLUME 11.9 fl (7.4-10.4); MONOCYTE # 0.3 10^3/ul (0.3-0.9); MONOCYTES % 7.1 % (0.0-11.0); NEUTROPHILS % 68.2 % (39.0-77.0); PLATELET COUNT 178 10^3/UL (140-415); POSITIVE DIFF @See below; RED BLOOD COUNT 2.94 10^6/ul (4.70-6.10); RED CELL DISTRIBUTION WIDTH 14.1 % (11.5-14.5)
[2018-04-04 09:55] LABS: WHITE BLOOD COUNT 4.4 10^3/ul (4.8-10.8)
[2018-04-04] MEDS: CEFTRIAXONE 1 GM/50 ML (PMX) 50 ML IVPB (10:10)
[2018-04-04] MEDS: DEXTROSE 5% 1,000 ML IV (13:00)
[2018-04-04 13:51] LABS: ALBUMIN 2.7 g/dl (3.3-4.9); ANION GAP 8 (8-16); BLOOD UREA NITROGEN 26 mg/dl (7-20); CALCIUM 8.5 mg/dl (8.4-10.2); CARBON DIOXIDE 25 mmol/L (21-31); CHLORIDE 114 mmol/L (97-110); CREATININE 1.48 mg/dl (0.61-1.24); GLUCOSE 132 mg/dl (70-220); MAGNESIUM 1.9 mg/dl (1.7-2.5); PHOSPHORUS 2.7 mg/dl (2.5-4.9); POTASSIUM 3.1 mmol/L (3.5-5.1); SODIUM 144 mmol/L (135-144)
[2018-04-04] MEDS: DIVALPROEX (EC) 500 MG TAB PO ×2 (14:35→20:56)
[2018-04-04] MEDS: POTASSIUM CHLORIDE 20 MEQ POWDER FOR ORAL SOLN PO (18:30)
[2018-04-04] MEDS: DOCUSATE SODIUM 100 MG CAP PO (20:51)
[2018-04-04] MEDS: POTASSIUM CHLORIDE 100 ML IVPB ×2 (20:52→23:16)
[2018-04-04] MEDS: MAGNESIUM HYDROXIDE 30ML CUP PO (20:55)
[2018-04-04] MEDS: BISACODYL 10 MG SUPP PR (20:55)
[2018-04-04] MEDS: FERROUS SULFATE (EC) 325 MG TAB PO (20:56)
[2018-04-04] MEDS: PHENOBARBITAL 32.4 MG TAB PO (20:56)
[2018-04-04] MEDS: PHENYTOIN 100 MG CAP PO (20:57)
[2018-04-04] MEDS: ATORVASTATIN 20 MG TAB PO (20:58)
[2018-04-05] MEDS: DEXTROSE 5% 1,000 ML IV ×2 (05:23→18:13)
[2018-04-05] MEDS: LEVOFLOXACIN 500 MG TAB PO (05:25)
[2018-04-05] MEDS: FAMOTIDINE 20 MG TAB PO (08:26)
[2018-04-05] MEDS: PHENYTOIN 100 MG CAP PO ×2 (08:26→20:39)
[2018-04-05] MEDS: ASPIRIN 81 MG TAB PO (08:27)
[2018-04-05] MEDS: MULTIVITAMINS THERAPEUTIC TAB PO (08:27)
[2018-04-05 08:39] LABS: ADD MAN DIFF? NO
[2018-04-05 08:40] LABS: EOSINOPHILS # 0.2 10^3/ul (0.0-0.5); EOSINOPHILS % 3.8 % (0.0-7.0); HEMATOCRIT 27.3 % (42.0-52.0); LYMPHOCYTES # 0.9 10^3/ul (0.8-2.9); MEAN CORPUSCULAR HEMOGLOBIN 31.8 pg (29.0-33.0); MEAN CORPUSCULAR VOLUME 96.5 fl (82.0-101.0); MEAN PLATELET VOLUME 10.4 fl (7.4-10.4); MONOCYTE # 0.1 10^3/ul (0.3-0.9); MONOCYTES % 3.1 % (0.0-11.0); NEUTROPHIL # 2.7 10^3/ul (1.6-7.5); NEUTROPHILS % 69.6 % (39.0-77.0); PLATELET COUNT 197 10^3/UL (140-415); RED BLOOD COUNT 2.83 10^6/ul (4.70-6.10); RED CELL DISTRIBUTION WIDTH 13.7 % (11.5-14.5)
[2018-04-05 08:40] LABS: WHITE BLOOD COUNT 3.9 10^3/ul (4.8-10.8)
[2018-04-05] MEDS: VALPROIC ACID LIQUID CUP 250 MG/5 ML CUP PO ×3 (08:46→20:38)
[2018-04-05 09:08] LABS: ALBUMIN 2.8 g/dl (3.3-4.9); ANION GAP 11 (8-16); BLOOD UREA NITROGEN 21 mg/dl (7-20); CALCIUM 8.1 mg/dl (8.4-10.2); CARBON DIOXIDE 22 mmol/L (21-31); CHLORIDE 114 mmol/L (97-110); GLUCOSE 94 mg/dl (70-220); PHOSPHORUS 1.9 mg/dl (2.5-4.9); POTASSIUM 4.1 mmol/L (3.5-5.1); SODIUM 143 mmol/L (135-144)
[2018-04-05] MEDS: SODIUM PHOSPHATE 30 MMOL in SOD CHLORIDE 0.9% 250 ML IVPB (09:30)
[2018-04-05] MEDS: CEFTRIAXONE 1 GM/50 ML (PMX) 50 ML IVPB (10:00)
[2018-04-05] MEDS: MAGNESIUM HYDROXIDE 30ML CUP PO (20:38)
[2018-04-05] MEDS: BISACODYL 10 MG SUPP PR ×2 (20:40→21:00)
[2018-04-05] MEDS: DOCUSATE SODIUM 100 MG CAP PO (20:40)
[2018-04-05] MEDS: FERROUS SULFATE (EC) 325 MG TAB PO (20:40)
[2018-04-05] MEDS: ATORVASTATIN 20 MG TAB PO (20:40)
[2018-04-05] MEDS: PHENOBARBITAL 32.4 MG TAB PO (20:40)
[2018-04-06] MEDS: DEXTROSE 5% 1,000 ML IV (00:14)
[2018-04-06] MEDS: LEVOFLOXACIN 500 MG TAB PO (05:23)
[2018-04-06 08:32] LABS: ADD MAN DIFF? NO
[2018-04-06 08:36] LABS: WHITE BLOOD COUNT 4.4 10^3/ul (4.8-10.8)
[2018-04-06 08:36] LABS: BASOPHILS % 0.2 % (0.0-2.0); EOSINOPHILS # 0.3 10^3/ul (0.0-0.5); EOSINOPHILS % 6.1 % (0.0-7.0); HEMATOCRIT 22.2 % (42.0-52.0); HEMOGLOBIN 7.4 g/dl (14.0-18.0); LYMPHOCYTES % 22.7 % (15.0-51.0); MEAN CORPUSCULAR HEMOGLOBIN 32.2 pg (29.0-33.0); MEAN CORPUSCULAR HGB CONC 33.3 g/dl (32.0-37.0); MEAN CORPUSCULAR VOLUME 96.5 fl (82.0-101.0); MEAN PLATELET VOLUME 10.3 fl (7.4-10.4); MONOCYTE # 0.3 10^3/ul (0.3-0.9); MONOCYTES % 7.5 % (0.0-11.0); NEUTROPHIL # 2.8 10^3/ul (1.6-7.5); NEUTROPHILS % 62.8 % (39.0-77.0); PLATELET COUNT 200 10^3/UL (140-415); RED CELL DISTRIBUTION WIDTH 13.5 % (11.5-14.5)
[2018-04-06] MEDS: VALPROIC ACID LIQUID CUP 250 MG/5 ML CUP PO ×3 (08:36→22:19)
[2018-04-06] MEDS: FAMOTIDINE 20 MG TAB PO (08:36)
[2018-04-06] MEDS: ASPIRIN 81 MG TAB PO (08:36)
[2018-04-06] MEDS: MULTIVITAMINS THERAPEUTIC TAB PO (08:36)
[2018-04-06] MEDS: PHENYTOIN 100 MG CAP PO ×2 (08:41→22:16)
[2018-04-06 09:00] LABS: ALBUMIN 2.5 g/dl (3.3-4.9); ANION GAP 11 (8-16); BLOOD UREA NITROGEN 15 mg/dl (7-20); CALCIUM 7.6 mg/dl (8.4-10.2); CARBON DIOXIDE 24 mmol/L (21-31); CHLORIDE 109 mmol/L (97-110); CREATININE 1.44 mg/dl (0.61-1.24); GLUCOSE 90 mg/dl (70-220); MAGNESIUM 2.2 mg/dl (1.7-2.5); PHOSPHORUS 3.5 mg/dl (2.5-4.9); POTASSIUM 3.6 mmol/L (3.5-5.1); SODIUM 140 mmol/L (135-144)
[2018-04-06] MEDS ORDERED: POTASSIUM CHLORIDE (SR) 20 MEQ TAB PO (09:59)
[2018-04-06] MEDS: POTASSIUM CHLORIDE 20 MEQ POWDER FOR ORAL SOLN PO (10:52)
[2018-04-06 12:14] LABS: HEMATOCRIT 23.5 % (42.0-52.0)
[2018-04-06] MEDS: DOCUSATE SODIUM 100 MG CAP PO (22:19)
[2018-04-06] MEDS: PHENOBARBITAL 32.4 MG TAB PO (22:19)
[2018-04-06] MEDS: MAGNESIUM HYDROXIDE 30ML CUP PO (22:19)
[2018-04-06] MEDS: FERROUS SULFATE (EC) 325 MG TAB PO (22:20)
[2018-04-06] MEDS: BISACODYL 10 MG SUPP PR (22:20)
[2018-04-06] MEDS: ATORVASTATIN 20 MG TAB PO (22:20)
[2018-04-07] MEDS: LEVOFLOXACIN 500 MG TAB PO (06:12)
[2018-04-07] MEDS: PHENYTOIN 100 MG CAP PO (09:40)
[2018-04-07] MEDS: ASPIRIN 81 MG TAB PO (09:40)
[2018-04-07] MEDS: VALPROIC ACID LIQUID CUP 250 MG/5 ML CUP PO ×2 (09:40→13:33)
[2018-04-07] MEDS: MULTIVITAMINS THERAPEUTIC TAB PO (09:40)
[2018-04-07] MEDS: FAMOTIDINE 20 MG TAB PO (09:41)
== END 2018-04-07 14:30 | DRG 871 ==
LOC: TEL 04-07 04:59 → E/R 04:01 → TEL 05:48
PROVIDERS: Internal Medicine
DX: A41.9 Sepsis, unspecified organism (principal); G93.41 Metabolic encephalopathy; G93.49 Other encephalopathy; J18.9 Pneumonia, unspecified organism; N39.0 Urinary tract infection, site not specified; E87.0 Hyperosmolality and hypernatremia; I69.354 Hemiplegia and hemiparesis following cerebral infarction affecting left non-dominant side; N17.9 Acute kidney failure, unspecified; I12.9 Hypertensive chronic kidney disease with stage 1 through stage 4 chronic kidney disease, or unspecified chronic kidney disease; N18.9 Chronic kidney disease, unspecified; Z87.891 Personal history of nicotine dependence; I69.398 Other sequelae of cerebral infarction
CPT/HCPCS: 36415; 70450; 71045; 80048; 80053; 80069; 80164; 80184; 80185; 81001; 81003; 82140; 82962; 83605; 83735; 84484; 85014; 85018; 85025; 85610; 85730; 87040; 87081; 87086; 92526; 92610; 93005; 95819; 97110; 97162; 97530; 99291-25

== ENCOUNTER 2018-05-09 22:52 | Inpatient (IN) | payer OTHER ==
[2018-05-09] MEDS: SODIUM CHLORIDE 0.9% 1L BAG IV* (23:11)
[2018-05-09 23:23] LABS: HEMATOCRIT 28.1 % (42.0-52.0); HEMOGLOBIN 9.6 g/dl (14.0-18.0); MEAN CORPUSCULAR HGB CONC 34.2 g/dl (32.0-37.0); MEAN CORPUSCULAR VOLUME 96.6 fl (82.0-101.0); MEAN PLATELET VOLUME 10.9 fl (7.4-10.4); PLATELET COUNT 172 10^3/UL (140-415); POSITIVE DIFF @See below; RED BLOOD COUNT 2.91 10^6/ul (4.70-6.10); RED CELL DISTRIBUTION WIDTH 13.9 % (11.5-14.5)
[2018-05-09 23:23] LABS: WHITE BLOOD COUNT 16.5 10^3/ul (4.8-10.8)
[2018-05-09 23:26] LABS: ADD MAN DIFF? YES
[2018-05-09 23:35] LABS: INR 1.45; PROTIME 17.9 Sec (11.9-14.9); PT RATIO 1.4
[2018-05-09 23:36] LABS: PARTIAL THROMBOPLASTIN TIME 49.5 Sec (23.0-35.0)
[2018-05-09 23:45] LABS: LACTIC ACID 1.2 mmol/L (0.5-2.0)
[2018-05-09 23:46] LABS: ANION GAP 12 (8-16); BLOOD UREA NITROGEN 33 mg/dl (7-20); CALCIUM 11.4 mg/dl (8.4-10.2); CARBON DIOXIDE 26 mmol/L (21-31); CHLORIDE 110 mmol/L (97-110); CREATININE 2.28 mg/dl (0.61-1.24); GLUCOSE 93 mg/dl (70-220); POTASSIUM 3.2 mmol/L (3.5-5.1); SODIUM 145 mmol/L (135-144)
[2018-05-10 00:09] LABS: BAND NEUTROPHILS #M 5.9 10^3/ul (0.0-0.6); BAND NEUTROPHILS % (M) 36 % (0-4); GIANT THROMBO% (M) 1 % (0-0); LYMPHOCYTES #M 0.8 10^3/ul (0.8-2.9); LYMPHOCYTES % (M) 5 % (15-51); MONOCYTE #M 1.3 10^3/ul (0.3-0.9); MONOCYTES % (M) 8 % (0-11); PLATELET ESTIMATE NORMAL; SEG NEUT #M 9.4 10^3/ul (1.6-7.5); SEGMENTED NEUTROPHILS (M) % 51 % (39-77); SMUDGE%M 3 % (0-0)
[2018-05-10 00:19] LABS: TROPONIN-I 0.268 ng/ml (0.000-0.120)
[2018-05-10 01:00] LABS: ADD UMIC YES; UR ASCORBIC ACID 20 mg/dL (NEGATIVE); UR BACTERIA FEW /HPF (NONE SEEN); UR BILIRUBIN (Dip) NEGATIVE (NEGATIVE); UR BLOOD (Dip) 1+ mg/dL (NEGATIVE); UR CLARITY CLOUDY (CLEAR); UR COLOR AMBER (YELLOW); UR GLUCOSE (Dip) NEGATIVE (NEGATIVE); UR KETONES (Dip) TRACE mg/dL (NEGATIVE); UR LEUKOCYTE ESTERASE (Dip) NEGATIVE Leu/ul (NEGATIVE); UR NITRITE (Dip) NEGATIVE (NEGATIVE); UR RBC 5 /HPF (0-5); UR SPECIFIC GRAVITY (Dip) 1.021 (1.003-1.030); UR SQUAMOUS EPITHELIAL CELL FEW /HPF (FEW); UR TOTAL PROTEIN (Dip) 2+ mg/dl (NEGATIVE); UR UROBILINOGEN (Dip) NEGATIVE (NEGATIVE); UR WBC 5 /HPF (0-5)
[2018-05-10 04:21] LABS: AADO2 Arterial 593.3 mmHg (7.0-24.0); Allen Test ACCEPTAB; Arterial Base Excess -1.7 mmol/L (-3.0-3); Arterial Blood Gas Oxygen Sat 94.4 mmHG (95.0-98.0); Arterial COHb 0.3 % (0.0-3.0); Arterial Fraction of Oxyhgb 93.8 % (93.0-99.0); Arterial HCO3 23.9 mmol/L (22.0-26.0); Arterial MetHb 0.3 % (0.0-1.5); Arterial Total Hemglobin 10.4 g/dl (12.0-18.0); Arterial pCO2 44.4 mmhg (35-45); MODE MASK - NRB; Site Right Radial
[2018-05-10 05:25] LABS: ADD MAN DIFF? NO
[2018-05-10 05:29] LABS: WHITE BLOOD COUNT 16.1 10^3/ul (4.8-10.8)
[2018-05-10 05:29] LABS: ABNORMAL IP MESSAGE 1; BASOPHIL # 0.1 10^3/ul (0.0-0.1); BASOPHILS % 0.4 % (0.0-2.0); EOSINOPHILS % 0.1 % (0.0-7.0); HEMATOCRIT 31.3 % (42.0-52.0); HEMOGLOBIN 10.2 g/dl (14.0-18.0); LYMPHOCYTES # 1.9 10^3/ul (0.8-2.9); LYMPHOCYTES % 11.6 % (15.0-51.0); MEAN CORPUSCULAR HEMOGLOBIN 32.5 pg (29.0-33.0); MEAN CORPUSCULAR HGB CONC 32.6 g/dl (32.0-37.0); MEAN CORPUSCULAR VOLUME 99.7 fl (82.0-101.0); MEAN PLATELET VOLUME 10.7 fl (7.4-10.4); MONOCYTE # 0.8 10^3/ul (0.3-0.9); NEUTROPHIL # 13.3 10^3/ul (1.6-7.5); NEUTROPHILS % 82.5 % (39.0-77.0); PLATELET COUNT 172 10^3/UL (140-415); POSITIVE DIFF @See below; RED BLOOD COUNT 3.14 10^6/ul (4.70-6.10); RED CELL DISTRIBUTION WIDTH 14.1 % (11.5-14.5)
[2018-05-10] MEDS ORDERED: ALBUTEROL/IPRATROPIUM (NEB) 3 ML AMP NEB (06:00)
[2018-05-10] MEDS ORDERED: VANCOMYCIN IV PER PHARMACY XX (06:00)
[2018-05-10] MEDS ORDERED: ACETAMINOPHEN 650 MG SUPP PR (06:00)
[2018-05-10] MEDS ORDERED: ONDANSETRON 4 MG INJ IV (06:00)
[2018-05-10 06:23] LABS: ALANINE AMINOTRANSFERASE 31 IU/L (13-69); ALBUMIN 2.7 g/dl (3.3-4.9); ALBUMIN/GLOBULIN RATIO 0.77; ALKALINE PHOSPHATASE 95 IU/L (42-121); ANION GAP 14 (8-16); ASPARTATE AMINO TRANSFERASE 47 IU/L (15-46); BILIRUBIN,INDIRECT 0.2 mg/dl (0-1.1); BILIRUBIN,TOTAL 0.2 mg/dl (0.2-1.3); BLOOD UREA NITROGEN 32 mg/dl (7-20); CARBON DIOXIDE 25 mmol/L (21-31); CHLORIDE 114 mmol/L (97-110); CHOL/HDL RATIO 2.5 RATIO; CHOLESTEROL 113 mg/dl (100-200); GLUCOSE 84 mg/dl (70-220); HDL CHOLESTEROL 44 mg/dl (28-71); LDL CHOLESTEROL,CALCULATED 32 mg/dl; POTASSIUM 3.8 mmol/L (3.5-5.1); SODIUM 149 mmol/L (135-144); TOTAL PROTEIN 6.2 g/dl (6.1-8.1); TRIGLYCERIDES 183 mg/dl (0-149)
[2018-05-10] MEDS: SOD CHLORIDE 0.9% 250 ML IV (06:35)
[2018-05-10] MEDS: DEXTROSE 5%-0.45% NACL 1,000 ML IV ×2 (06:39→16:43)
[2018-05-10 06:41] LABS: LACTIC ACID 1.5 mmol/L (0.5-2.0)
[2018-05-10 06:51] LABS: THYROID STIMULATING HORMONE 0.949 MIU/L (0.465-4.680)
[2018-05-10] MEDS: CEFEPIME 1GM/50 ML (PMX) 50 ML IVPB (06:51)
[2018-05-10 07:20] LABS: CREATINE KINASE 92 IU/L (23-200)
[2018-05-10 07:24] LABS: CK INDEX 3.5; CK-MB 3.18 ng/ml (0.0-2.4)
[2018-05-10 07:25] LABS: TROPONIN-I 0.738 ng/ml (0.000-0.120)
[2018-05-10] MEDS ORDERED: HEPARIN 1000 UNITS/ML 10 ML INJ IV ×2 (08:00→11:30)
[2018-05-10] MEDS: FAMOTIDINE 20 MG INJ IV (08:17)
[2018-05-10] MEDS: VANCOMYCIN 1.25 GM in SOD CHLORIDE 0.9% 250 ML IVPB (08:17)
[2018-05-10 08:50] LABS: LACTIC ACID 1.9 mmol/L (0.5-2.0)
[2018-05-10] MEDS: ASPIRIN 81 MG TAB PO (09:36)
[2018-05-10] MEDS: DIVALPROEX (EC) 500 MG TAB PO ×3 (09:37→12:07)
[2018-05-10] MEDS: PHENYTOIN 100 MG CAP PO ×2 (09:37→10:32)
[2018-05-10 10:16] LABS: Allen Test ACCEPTAB; Arterial Base Excess -6.5 mmol/L (-3.0-3); Arterial Blood Gas Oxygen Sat 99.1 mmHG (95.0-98.0); Arterial COHb 0.2 % (0.0-3.0); Arterial Fraction of Oxyhgb 98.5 % (93.0-99.0); Arterial HCO3 17.6 mmol/L (22.0-26.0); Arterial MetHb 0.4 % (0.0-1.5); Arterial Total Hemglobin 10.5 g/dl (12.0-18.0); Arterial pCO2 30.3 mmhg (35-45); MODE MASK - NRB; Site Right Radial
[2018-05-10] MEDS: LORAZEPAM 2 MG INJ IV (10:50)
[2018-05-10] MEDS ORDERED: LORAZEPAM 2 MG INJ IV (11:00)
[2018-05-10 11:59] LABS: ABNORMAL IP MESSAGE 1; HEMATOCRIT 27.2 % (42.0-52.0); MEAN CORPUSCULAR HEMOGLOBIN 32.7 pg (29.0-33.0); MEAN CORPUSCULAR HGB CONC 33.1 g/dl (32.0-37.0); MEAN CORPUSCULAR VOLUME 98.9 fl (82.0-101.0); MEAN PLATELET VOLUME 10.2 fl (7.4-10.4); PLATELET COUNT 153 10^3/UL (140-415); POSITIVE DIFF @See below; RED BLOOD COUNT 2.75 10^6/ul (4.70-6.10); RED CELL DISTRIBUTION WIDTH 14.3 % (11.5-14.5)
[2018-05-10] MEDS: PHENYTOIN (100 MG/4 ML) CUP NGT ×2 (12:02→20:28)
[2018-05-10 12:08] LABS: ADD MAN DIFF? YES
[2018-05-10 12:15] LABS: LACTIC ACID 1.6 mmol/L (0.5-2.0)
[2018-05-10 12:18] LABS: INR 1.63; PROTIME 19.7 Sec (11.9-14.9); PT RATIO 1.5
[2018-05-10 12:19] LABS: PARTIAL THROMBOPLASTIN TIME 45.3 Sec (23.0-35.0)
[2018-05-10 12:20] LABS: CREATINE KINASE 95 IU/L (23-200)
[2018-05-10] MEDS: NORepinephrine 8MG/250 ML (PMX 250 ML IV (12:20)
[2018-05-10 12:28] LABS: CK INDEX 2.5; CK-MB 2.42 ng/ml (0.0-2.4)
[2018-05-10 12:29] LABS: TROPONIN-I 0.519 ng/ml (0.000-0.120)
[2018-05-10] MEDS: HEPARIN 1000 UNITS/ML 10 ML INJ IV (12:40)
[2018-05-10] MEDS: HEPARIN 25000 UNITS/250 ML 250 ML IV (12:41)
[2018-05-10 13:27] LABS: ANISOCYTOSIS 1+ (0-0); BAND NEUTROPHILS #M 2.7 10^3/ul (0.0-0.6); BAND NEUTROPHILS % (M) 25 % (0-4); GIANT THROMBO% (M) 2 % (0-0); LYMPHOCYTES #M 1.7 10^3/ul (0.8-2.9); LYMPHOCYTES % (M) 16 % (15-51); METAMYELOCYTES #M 0.1 10^3/ul (0.0-0.0); METAMYELOCYTES %M 1 % (0-0); PLATELET ESTIMATE NORMAL; POLYCHROMASIA 1+ (0-0); REACTIVE LYMPHOCYTES #M 0.2 10^3/ul (0.0-0.0); REACTIVE LYMPHOCYTES% (M) 2 % (0-0); SEG NEUT #M 6.5 10^3/ul (1.6-7.5); SEGMENTED NEUTROPHILS (M) % 56 % (39-77); SMUDGE%M 5 % (0-0)
[2018-05-10] MEDS: DIVALPROEX SPRINKLE 125 MG CAP PO ×3 (14:24→20:28)
[2018-05-10] MEDS: LIDOCAINE 1% (MPF) 5 ML VIAL SC (15:31)
[2018-05-10 20:24] LABS: ADD UMIC YES; UR ASCORBIC ACID NEGATIVE (NEGATIVE); UR BACTERIA FEW /HPF (NONE SEEN); UR BILIRUBIN (Dip) NEGATIVE (NEGATIVE); UR BLOOD (Dip) 1+ mg/dL (NEGATIVE); UR CLARITY CLOUDY (CLEAR); UR COLOR YELLOW (YELLOW); UR GLUCOSE (Dip) NEGATIVE (NEGATIVE); UR KETONES (Dip) TRACE mg/dL (NEGATIVE); UR LEUKOCYTE ESTERASE (Dip) NEGATIVE Leu/ul (NEGATIVE); UR NITRITE (Dip) NEGATIVE (NEGATIVE); UR RBC 37 /HPF (0-5); UR SPECIFIC GRAVITY (Dip) 1.021 (1.003-1.030); UR TOTAL PROTEIN (Dip) 2+ mg/dl (NEGATIVE); UR UROBILINOGEN (Dip) NEGATIVE (NEGATIVE); UR WBC 12 /HPF (0-5)
[2018-05-10] MEDS: ATORVASTATIN 20 MG TAB PO (20:28)
[2018-05-10 20:40] LABS: CREATININE,URINE RANDOM 179.45 mg/dl (20-370)
[2018-05-10 20:40] LABS: SODIUM,URINE RANDOM 21 mmol/L (30-90)
[2018-05-10] MEDS ORDERED: PHENYTOIN 100 MG CAP PO (21:00)
[2018-05-11] MEDS: DEXTROSE 5%-0.45% NACL 1,000 ML IV (03:36)
[2018-05-11 04:55] LABS: HEMOGLOBIN A1C 4.5 % (0-5.9)
[2018-05-11 05:19] LABS: WHITE BLOOD COUNT 14.9 10^3/ul (4.8-10.8)
[2018-05-11 05:19] LABS: ADD MAN DIFF? YES; HEMATOCRIT 22.8 % (42.0-52.0); HEMOGLOBIN 7.5 g/dl (14.0-18.0); MEAN CORPUSCULAR HEMOGLOBIN 32.8 pg (29.0-33.0); MEAN CORPUSCULAR HGB CONC 32.9 g/dl (32.0-37.0); MEAN CORPUSCULAR VOLUME 99.6 fl (82.0-101.0); MEAN PLATELET VOLUME 10.7 fl (7.4-10.4); PLATELET COUNT 154 10^3/UL (140-415); POSITIVE DIFF @See below; RED BLOOD COUNT 2.29 10^6/ul (4.70-6.10); RED CELL DISTRIBUTION WIDTH 14.2 % (11.5-14.5)
[2018-05-11 05:44] LABS: ANION GAP 8 (8-16); CARBON DIOXIDE 23 mmol/L (21-31); CHLORIDE 115 mmol/L (97-110); CREATININE 1.77 mg/dl (0.61-1.24); GLUCOSE 96 mg/dl (70-220); SODIUM 143 mmol/L (135-144)
[2018-05-11 05:50] LABS: PHENYTOIN (DILANTIN) 5.4 ug/ml (10.0-20.0)
[2018-05-11 05:54] LABS: VALPROATE 29 ug/ml (50-100)
[2018-05-11] MEDS: CEFEPIME 1GM/50 ML (PMX) 50 ML IVPB (06:20)
[2018-05-11 07:05] LABS: BLOOD UREA NITROGEN 29 mg/dl (7-20); POTASSIUM 2.7 mmol/L (3.5-5.1)
[2018-05-11 07:32] LABS: AADO2 Arterial 69.9 mmHg (7.0-24.0); Allen Test ACCEPTAB; Arterial Base Excess -3.2 mmol/L (-3.0-3); Arterial Blood Gas Oxygen Sat 97.4 mmHG (95.0-98.0); Arterial COHb 0.1 % (0.0-3.0); Arterial Fraction of Oxyhgb 96.9 % (93.0-99.0); Arterial HCO3 21.9 mmol/L (22.0-26.0); Arterial MetHb 0.4 % (0.0-1.5); Arterial pCO2 39.6 mmhg (35-45); MODE NASAL CANNULA; Site Right Radial
[2018-05-11 07:45] LABS: MAGNESIUM 1.4 mg/dl (1.7-2.5)
[2018-05-11] MEDS: POTASSIUM CHLORIDE 20 MEQ POWDER FOR ORAL SOLN NGT (08:03)
[2018-05-11] MEDS: DEXTROSE 5%-0.9% NACL 1,000 ML IV ×2 (08:03→20:01)
[2018-05-11] MEDS: FAMOTIDINE 20 MG INJ IV (09:12)
[2018-05-11] MEDS: DIVALPROEX SPRINKLE 125 MG CAP PO ×4 (09:12→20:46)
[2018-05-11] MEDS: PHENYTOIN (100 MG/4 ML) CUP NGT ×2 (09:12→20:46)
[2018-05-11] MEDS: ASPIRIN 81 MG TAB PO (09:12)
[2018-05-11] MEDS: VANCOMYCIN 1 GM 250 ML IVPB (10:06)
[2018-05-11] MEDS: MAGNESIUM SULFATE 4 GM/100 ML 100 ML IVPB (10:06)
[2018-05-11] MEDS: PHENOBARBITAL 32.4 MG TAB PO (10:06)
[2018-05-11 10:47] LABS: IRON 19 ug/dl (35-150)
[2018-05-11 10:56] LABS: % IRON SATURATION 14 % SAT (22-52); TOTAL IRON BINDING CAPACITY 138 ug/dl (241-421)
[2018-05-11 13:46] LABS: HEMATOCRIT 22.6 % (42.0-52.0); HEMOGLOBIN 7.5 g/dl (14.0-18.0)
[2018-05-11] MEDS: ATORVASTATIN 20 MG TAB PO (20:46)
[2018-05-12] MEDS: PHENYTOIN 500 MG in SOD CHLORIDE 0.9% 100 ML IV (00:44)
[2018-05-12 05:05] LABS: ADD MAN DIFF? NO
[2018-05-12 05:06] LABS: WHITE BLOOD COUNT 9.6 10^3/ul (4.8-10.8)
[2018-05-12 05:06] LABS: BASOPHILS % 0.2 % (0.0-2.0); EOSINOPHILS # 0.2 10^3/ul (0.0-0.5); EOSINOPHILS % 2.5 % (0.0-7.0); HEMOGLOBIN 7.8 g/dl (14.0-18.0); LYMPHOCYTES # 0.8 10^3/ul (0.8-2.9); LYMPHOCYTES % 8.3 % (15.0-51.0); MEAN CORPUSCULAR HEMOGLOBIN 32.1 pg (29.0-33.0); MEAN CORPUSCULAR HGB CONC 32.5 g/dl (32.0-37.0); MEAN CORPUSCULAR VOLUME 98.8 fl (82.0-101.0); MEAN PLATELET VOLUME 10.8 fl (7.4-10.4); MONOCYTE # 0.3 10^3/ul (0.3-0.9); MONOCYTES % 3.2 % (0.0-11.0); NEUTROPHIL # 8.2 10^3/ul (1.6-7.5); NEUTROPHILS % 85.4 % (39.0-77.0); PLATELET COUNT 142 10^3/UL (140-415); RED BLOOD COUNT 2.43 10^6/ul (4.70-6.10); RED CELL DISTRIBUTION WIDTH 14.1 % (11.5-14.5)
[2018-05-12] MEDS: DEXTROSE 5%-0.9% NACL 1,000 ML IV (05:33)
[2018-05-12] MEDS: CEFEPIME 1GM/50 ML (PMX) 50 ML IVPB ×3 (05:33→21:26)
[2018-05-12 05:51] LABS: ALANINE AMINOTRANSFERASE 17 IU/L (13-69); ALBUMIN 2.6 g/dl (3.3-4.9); ALBUMIN/GLOBULIN RATIO 0.83; ALKALINE PHOSPHATASE 87 IU/L (42-121); ANION GAP 8 (8-16); ASPARTATE AMINO TRANSFERASE 31 IU/L (15-46); BLOOD UREA NITROGEN 19 mg/dl (7-20); CALCIUM 8.4 mg/dl (8.4-10.2); CARBON DIOXIDE 22 mmol/L (21-31); CHLORIDE 118 mmol/L (97-110); CREATININE 1.34 mg/dl (0.61-1.24); GLUCOSE 106 mg/dl (70-220); POTASSIUM 3.1 mmol/L (3.5-5.1); SODIUM 145 mmol/L (135-144); TOTAL PROTEIN 5.7 g/dl (6.1-8.1)
[2018-05-12 06:00] LABS: PHENYTOIN (DILANTIN) 14.8 ug/ml (10.0-20.0)
[2018-05-12] MEDS: POTASSIUM CHLORIDE 50 ML IVPB ×3 (06:52→09:14)
[2018-05-12] MEDS: D5W-0.45 NACL + KCL 20 MEQ 1,000 ML IV (06:52)
[2018-05-12] MEDS: FAMOTIDINE 20 MG INJ IV (08:05)
[2018-05-12] MEDS: DIVALPROEX SPRINKLE 125 MG CAP PO ×4 (08:06→21:38)
[2018-05-12] MEDS: PHENOBARBITAL 32.4 MG TAB PO (08:06)
[2018-05-12] MEDS: ASPIRIN 81 MG TAB PO (08:06)
[2018-05-12] MEDS: PHENYTOIN (100 MG/4 ML) CUP NGT ×2 (08:06→21:28)
[2018-05-12] MEDS: VANCOMYCIN 750 MG in SOD CHLORIDE 0.9% 150 ML IVPB ×2 (09:50→23:24)
[2018-05-12 10:57] LABS: MAGNESIUM 2.4 mg/dl (1.7-2.5)
[2018-05-12] MEDS: HEPARIN 5,000 UNIT/0.5 ML VIAL SC ×2 (14:40→22:40)
[2018-05-12 17:36] LABS: CREATININE, RANDOM URINE 163 mg/dL (20-320); MICROALBUMIN 36.8 mg/dL; MICROALBUMIN/CREATININE RATIO 226 (<30)
[2018-05-12] MEDS: ATORVASTATIN 20 MG TAB PO (21:38)
[2018-05-13] MEDS: D5W-0.45 NACL + KCL 20 MEQ 1,000 ML IV (04:03)
[2018-05-13] MEDS: HEPARIN 5,000 UNIT/0.5 ML VIAL SC ×3 (06:00→22:54)
[2018-05-13 06:04] LABS: ADD MAN DIFF? NO
[2018-05-13 06:07] LABS: WHITE BLOOD COUNT 8.8 10^3/ul (4.8-10.8)
[2018-05-13 06:07] LABS: BASOPHILS % 0.2 % (0.0-2.0); EOSINOPHILS # 0.1 10^3/ul (0.0-0.5); HEMATOCRIT 23.8 % (42.0-52.0); HEMOGLOBIN 7.9 g/dl (14.0-18.0); LYMPHOCYTES # 1.1 10^3/ul (0.8-2.9); LYMPHOCYTES % 12.1 % (15.0-51.0); MEAN CORPUSCULAR HEMOGLOBIN 32.4 pg (29.0-33.0); MEAN CORPUSCULAR HGB CONC 33.2 g/dl (32.0-37.0); MEAN CORPUSCULAR VOLUME 97.5 fl (82.0-101.0); MEAN PLATELET VOLUME 10.7 fl (7.4-10.4); MONOCYTE # 0.5 10^3/ul (0.3-0.9); MONOCYTES % 5.7 % (0.0-11.0); NEUTROPHIL # 7.1 10^3/ul (1.6-7.5); NEUTROPHILS % 80.5 % (39.0-77.0); PLATELET COUNT 161 10^3/UL (140-415); POSITIVE DIFF @See below; RED BLOOD COUNT 2.44 10^6/ul (4.70-6.10); RED CELL DISTRIBUTION WIDTH 14.6 % (11.5-14.5)
[2018-05-13 06:57] LABS: ALANINE AMINOTRANSFERASE 24 IU/L (13-69); ALBUMIN 2.3 g/dl (3.3-4.9); ALBUMIN/GLOBULIN RATIO 0.67; ALKALINE PHOSPHATASE 115 IU/L (42-121); ANION GAP 10 (8-16); ASPARTATE AMINO TRANSFERASE 27 IU/L (15-46); BILIRUBIN,INDIRECT 0.2 mg/dl (0-1.1); BILIRUBIN,TOTAL 0.2 mg/dl (0.2-1.3); BLOOD UREA NITROGEN 17 mg/dl (7-20); CALCIUM 8.3 mg/dl (8.4-10.2); CARBON DIOXIDE 23 mmol/L (21-31); CHLORIDE 116 mmol/L (97-110); CREATININE 1.44 mg/dl (0.61-1.24); GLUCOSE 127 mg/dl (70-220); POTASSIUM 3.6 mmol/L (3.5-5.1); SODIUM 145 mmol/L (135-144); TOTAL PROTEIN 5.7 g/dl (6.1-8.1)
[2018-05-13 07:55] LABS: ADD MAN DIFF? NO
[2018-05-13 07:58] LABS: BASOPHILS % 0.4 % (0.0-2.0); EOSINOPHILS # 0.1 10^3/ul (0.0-0.5); HEMATOCRIT 24.2 % (42.0-52.0); LYMPHOCYTES % 12.2 % (15.0-51.0); MEAN CORPUSCULAR HEMOGLOBIN 32.7 pg (29.0-33.0); MEAN CORPUSCULAR HGB CONC 33.1 g/dl (32.0-37.0); MEAN CORPUSCULAR VOLUME 98.8 fl (82.0-101.0); MEAN PLATELET VOLUME 10.3 fl (7.4-10.4); MONOCYTE # 0.5 10^3/ul (0.3-0.9); MONOCYTES % 5.9 % (0.0-11.0); NEUTROPHIL # 6.7 10^3/ul (1.6-7.5); PLATELET COUNT 159 10^3/UL (140-415); POSITIVE DIFF @See below; RED BLOOD COUNT 2.45 10^6/ul (4.70-6.10); RED CELL DISTRIBUTION WIDTH 14.6 % (11.5-14.5)
[2018-05-13 07:58] LABS: WHITE BLOOD COUNT 8.3 10^3/ul (4.8-10.8)
[2018-05-13 08:44] LABS: VANCOMYCIN,TROUGH 25.4 ug/ml (10.0-20.0)
[2018-05-13] MEDS: PHENYTOIN (100 MG/4 ML) CUP NGT ×2 (09:00→20:46)
[2018-05-13] MEDS: ASPIRIN 81 MG TAB PO (09:00)
[2018-05-13] MEDS: PHENOBARBITAL 32.4 MG TAB PO (09:00)
[2018-05-13] MEDS: DIVALPROEX SPRINKLE 125 MG CAP PO ×4 (09:00→20:47)
[2018-05-13] MEDS: FAMOTIDINE 20 MG INJ IV (09:51)
[2018-05-13] MEDS: CEFEPIME 1GM/50 ML (PMX) 50 ML IVPB ×2 (09:51→20:45)
[2018-05-13] MEDS ORDERED: TPN 1,000 ML IV (13:56)
[2018-05-13 15:06] LABS: ALANINE AMINOTRANSFERASE 19 IU/L (13-69); ALBUMIN 2.6 g/dl (3.3-4.9); ALBUMIN/GLOBULIN RATIO 0.81; ALKALINE PHOSPHATASE 95 IU/L (42-121); ANION GAP 10 (8-16); ASPARTATE AMINO TRANSFERASE 24 IU/L (15-46); BILIRUBIN,INDIRECT 0.2 mg/dl (0-1.1); BILIRUBIN,TOTAL 0.2 mg/dl (0.2-1.3); BLOOD UREA NITROGEN 18 mg/dl (7-20); CALCIUM 8.1 mg/dl (8.4-10.2); CARBON DIOXIDE 21 mmol/L (21-31); CHLORIDE 117 mmol/L (97-110); CREATININE 1.34 mg/dl (0.61-1.24); GLUCOSE 101 mg/dl (70-220); MAGNESIUM 1.8 mg/dl (1.7-2.5); PHOSPHORUS 1.9 mg/dl (2.5-4.9); POTASSIUM 3.6 mmol/L (3.5-5.1); SODIUM 144 mmol/L (135-144); TOTAL PROTEIN 5.8 g/dl (6.1-8.1); TRIGLYCERIDES 139 mg/dl (0-149)
[2018-05-13] MEDS: ACCU-CHEK XX ×2 (17:00→20:34)
[2018-05-13 18:53] LABS: PREALBUMIN 11.8 mg/dl (17.6-36.0)
[2018-05-13] MEDS: TPN 1,000 ML IV (20:02)
[2018-05-13] MEDS: ATORVASTATIN 20 MG TAB PO (20:46)
[2018-05-13] MEDS ORDERED: VANCOMYCIN 1.25 GM in SOD CHLORIDE 0.9% 250 ML IVPB (23:00)
[2018-05-14] MEDS: ACCU-CHEK XX ×6 (01:33→21:19)
[2018-05-14] MEDS: ALTEPLASE (CATHFLO) 2 MG INJ CATHETER (03:29)
[2018-05-14] MEDS: HEPARIN 5,000 UNIT/0.5 ML VIAL SC ×2 (05:41→13:11)
[2018-05-14 06:16] LABS: WHITE BLOOD COUNT 5.1 10^3/ul (4.8-10.8)
[2018-05-14 06:16] LABS: HEMATOCRIT 23.2 % (42.0-52.0); HEMOGLOBIN 7.4 g/dl (14.0-18.0); MEAN CORPUSCULAR HEMOGLOBIN 31.8 pg (29.0-33.0); MEAN CORPUSCULAR HGB CONC 31.9 g/dl (32.0-37.0); MEAN CORPUSCULAR VOLUME 99.6 fl (82.0-101.0); MEAN PLATELET VOLUME 10.7 fl (7.4-10.4); PLATELET COUNT 164 10^3/UL (140-415); POSITIVE DIFF @See below; RED BLOOD COUNT 2.33 10^6/ul (4.70-6.10); RED CELL DISTRIBUTION WIDTH 14.6 % (11.5-14.5)
[2018-05-14 06:29] LABS: ADD MAN DIFF? YES
[2018-05-14 06:49] LABS: ALANINE AMINOTRANSFERASE 28 IU/L (13-69); ALBUMIN 2.4 g/dl (3.3-4.9); ALKALINE PHOSPHATASE 89 IU/L (42-121); ANION GAP 11 (8-16); ASPARTATE AMINO TRANSFERASE 28 IU/L (15-46); BILIRUBIN,INDIRECT 0.2 mg/dl (0-1.1); BILIRUBIN,TOTAL 0.2 mg/dl (0.2-1.3); BLOOD UREA NITROGEN 20 mg/dl (7-20); CALCIUM 8.5 mg/dl (8.4-10.2); CARBON DIOXIDE 22 mmol/L (21-31); CHLORIDE 111 mmol/L (97-110); CREATININE 1.47 mg/dl (0.61-1.24); GLUCOSE 280 mg/dl (70-220); POTASSIUM 4.4 mmol/L (3.5-5.1); SODIUM 140 mmol/L (135-144); TOTAL PROTEIN 5.8 g/dl (6.1-8.1)
[2018-05-14 06:57] LABS: PHOSPHORUS 2.6 mg/dl (2.5-4.9)
[2018-05-14 06:57] LABS: MAGNESIUM 1.9 mg/dl (1.7-2.5)
[2018-05-14] MEDS: ASPIRIN 81 MG TAB PO (08:06)
[2018-05-14] MEDS: TPN 1,000 ML IV ×2 (08:07→23:00)
[2018-05-14] MEDS: CEFEPIME 1GM/50 ML (PMX) 50 ML IVPB ×2 (08:07→20:58)
[2018-05-14] MEDS: FAMOTIDINE 20 MG INJ IV (08:07)
[2018-05-14] MEDS: DIVALPROEX SPRINKLE 125 MG CAP PO ×4 (08:07→21:04)
[2018-05-14] MEDS: PHENYTOIN (100 MG/4 ML) CUP NGT ×2 (08:07→20:55)
[2018-05-14] MEDS: PHENOBARBITAL 32.4 MG TAB PO (08:09)
[2018-05-14 10:23] LABS: ANISOCYTOSIS 1+ (0-0); BAND NEUTROPHILS #M 0.9 10^3/ul (0.0-0.6); BAND NEUTROPHILS % (M) 18 % (0-4); EOSINOPHILS % (M) 1 % (0-7); ERYTHROBLAST% (NRBC) (M) 1 % (0-0); LYMPHOCYTES % (M) 21 % (15-51); MONOCYTE #M 0.6 10^3/ul (0.3-0.9); MONOCYTES % (M) 12 % (0-11); PLATELET ESTIMATE NORMAL; SEG NEUT #M 2.5 10^3/ul (1.6-7.5); SEGMENTED NEUTROPHILS (M) % 48 % (39-77); SMUDGE%M 5 % (0-0)
[2018-05-14] MEDS: morphine 2 MG INJ IV ×2 (14:05→19:02)
[2018-05-14] MEDS: ATORVASTATIN 20 MG TAB PO (20:55)
[2018-05-15] MEDS: ACCU-CHEK XX ×6 (01:00→21:00)
[2018-05-15 05:26] LABS: ADD MAN DIFF? NO
[2018-05-15 05:31] LABS: ABNORMAL IP MESSAGE 1; BASOPHILS % 0.5 % (0.0-2.0); EOSINOPHILS # 0.1 10^3/ul (0.0-0.5); EOSINOPHILS % 1.7 % (0.0-7.0); HEMATOCRIT 24.6 % (42.0-52.0); LYMPHOCYTES # 1.2 10^3/ul (0.8-2.9); LYMPHOCYTES % 20.8 % (15.0-51.0); MEAN CORPUSCULAR HEMOGLOBIN 32.4 pg (29.0-33.0); MEAN CORPUSCULAR HGB CONC 32.5 g/dl (32.0-37.0); MEAN CORPUSCULAR VOLUME 99.6 fl (82.0-101.0); MEAN PLATELET VOLUME 10.2 fl (7.4-10.4); MONOCYTE # 0.6 10^3/ul (0.3-0.9); MONOCYTES % 10.1 % (0.0-11.0); NEUTROPHIL # 3.9 10^3/ul (1.6-7.5); NEUTROPHILS % 66.6 % (39.0-77.0); PLATELET COUNT 201 10^3/UL (140-415); POSITIVE DIFF @See below; RED BLOOD COUNT 2.47 10^6/ul (4.70-6.10); RED CELL DISTRIBUTION WIDTH 14.2 % (11.5-14.5)
[2018-05-15 05:31] LABS: WHITE BLOOD COUNT 5.8 10^3/ul (4.8-10.8)
[2018-05-15 05:38] LABS: PHOSPHORUS 2.8 mg/dl (2.5-4.9)
[2018-05-15 05:38] LABS: ALANINE AMINOTRANSFERASE 47 IU/L (13-69); ALBUMIN 2.5 g/dl (3.3-4.9); ALBUMIN/GLOBULIN RATIO 0.65; ALKALINE PHOSPHATASE 133 IU/L (42-121); ANION GAP 13 (8-16); ASPARTATE AMINO TRANSFERASE 84 IU/L (15-46); BILIRUBIN,INDIRECT 0.2 mg/dl (0-1.1); BILIRUBIN,TOTAL 0.2 mg/dl (0.2-1.3); BLOOD UREA NITROGEN 27 mg/dl (7-20); CALCIUM 8.9 mg/dl (8.4-10.2); CARBON DIOXIDE 25 mmol/L (21-31); CHLORIDE 107 mmol/L (97-110); CREATININE 1.55 mg/dl (0.61-1.24); GLUCOSE 112 mg/dl (70-220); MAGNESIUM 1.9 mg/dl (1.7-2.5); POTASSIUM 4.2 mmol/L (3.5-5.1); SODIUM 141 mmol/L (135-144); TOTAL PROTEIN 6.3 g/dl (6.1-8.1)
[2018-05-15 05:50] LABS: INR 1.09; PROTIME 14.3 Sec (11.9-14.9); PT RATIO 1.1
[2018-05-15] MEDS: PHENYTOIN (100 MG/4 ML) CUP NGT ×2 (08:23→23:37)
[2018-05-15] MEDS: PHENOBARBITAL 32.4 MG TAB PO (08:23)
[2018-05-15] MEDS: ASPIRIN 81 MG TAB PO (08:23)
[2018-05-15] MEDS: CEFEPIME 1GM/50 ML (PMX) 50 ML IVPB (08:24)
[2018-05-15] MEDS: FAMOTIDINE 20 MG INJ IV (08:24)
[2018-05-15] MEDS: DIVALPROEX SPRINKLE 125 MG CAP PO ×4 (08:24→23:37)
[2018-05-15 08:37] LABS: ANISOCYTOSIS 1+ (0-0); BAND NEUTROPHILS #M 1.1 10^3/ul (0.0-0.6); BAND NEUTROPHILS % (M) 19 % (0-4); BASOPHIL #M 0.1 10^3/ul (0.0-0.0); BASOPHILS % (M) 2 % (0-2); EOSINOPHILS % (M) 3 % (0-7); GIANT THROMBO% (M) 1 % (0-0); LYMPHOCYTES #M 1.4 10^3/ul (0.8-2.9); LYMPHOCYTES % (M) 25 % (15-51); MONOCYTE #M 0.3 10^3/ul (0.3-0.9); MONOCYTES % (M) 6 % (0-11); PLATELET ESTIMATE NORMAL; POLYCHROMASIA 1+ (0-0); SEG NEUT #M 2.7 10^3/ul (1.6-7.5); SEGMENTED NEUTROPHILS (M) % 45 % (39-77); SMUDGE%M 32 % (0-0)
[2018-05-15] MEDS: TPN 1,000 ML IV ×2 (09:57→23:40)
[2018-05-15] MEDS ORDERED: VANCOMYCIN IV PER PHARMACY XX (15:00)
[2018-05-15] MEDS: PIPER-TAZO 3.375 GM IV (PMX) 100 ML IVPB ×2 (15:40→23:39)
[2018-05-15] MEDS: VANCOMYCIN 1 GM 250 ML IVPB (15:40)
[2018-05-15] MEDS: morphine 2 MG INJ IV (20:42)
[2018-05-15] MEDS: ATORVASTATIN 20 MG TAB PO (23:37)
[2018-05-16] MEDS: ACCU-CHEK XX ×6 (01:00→21:03)
[2018-05-16 05:37] LABS: ABNORMAL IP MESSAGE 1; HEMATOCRIT 20.5 % (42.0-52.0); MEAN CORPUSCULAR HEMOGLOBIN 32.5 pg (29.0-33.0); MEAN CORPUSCULAR HGB CONC 32.7 g/dl (32.0-37.0); MEAN CORPUSCULAR VOLUME 99.5 fl (82.0-101.0); PLATELET COUNT 184 10^3/UL (140-415); POSITIVE DIFF @See below; RED BLOOD COUNT 2.06 10^6/ul (4.70-6.10); RED CELL DISTRIBUTION WIDTH 13.6 % (11.5-14.5)
[2018-05-16 05:37] LABS: WHITE BLOOD COUNT 8.6 10^3/ul (4.8-10.8)
[2018-05-16 05:45] LABS: ADD MAN DIFF? YES
[2018-05-16 05:50] LABS: HEMOGLOBIN 6.7 g/dl (14.0-18.0)
[2018-05-16] MEDS: PIPER-TAZO 3.375 GM IV (PMX) 100 ML IVPB ×3 (05:53→21:07)
[2018-05-16 06:01] LABS: ALANINE AMINOTRANSFERASE 42 IU/L (13-69); ALBUMIN/GLOBULIN RATIO 0.66; ALKALINE PHOSPHATASE 101 IU/L (42-121); ANION GAP 13 (8-16); ASPARTATE AMINO TRANSFERASE 70 IU/L (15-46); BILIRUBIN,INDIRECT 0.2 mg/dl (0-1.1); BILIRUBIN,TOTAL 0.2 mg/dl (0.2-1.3); BLOOD UREA NITROGEN 40 mg/dl (7-20); CALCIUM 8.2 mg/dl (8.4-10.2); CARBON DIOXIDE 26 mmol/L (21-31); CHLORIDE 104 mmol/L (97-110); CREATININE 1.71 mg/dl (0.61-1.24); GLUCOSE 107 mg/dl (70-220); POTASSIUM 4.7 mmol/L (3.5-5.1); SODIUM 138 mmol/L (135-144)
[2018-05-16 06:08] LABS: PHOSPHORUS 3.4 mg/dl (2.5-4.9)
[2018-05-16 06:08] LABS: MAGNESIUM 2.1 mg/dl (1.7-2.5)
[2018-05-16 07:25] LABS: ANISOCYTOSIS 1+ (0-0); BAND NEUTROPHILS #M 1.1 10^3/ul (0.0-0.6); BAND NEUTROPHILS % (M) 13 % (0-4); EOSINOPHILS % (M) 2 % (0-7); LYMPHOCYTES #M 1.8 10^3/ul (0.8-2.9); LYMPHOCYTES % (M) 21 % (15-51); MONOCYTE #M 0.6 10^3/ul (0.3-0.9); MONOCYTES % (M) 7 % (0-11); PLATELET ESTIMATE NORMAL; SEGMENTED NEUTROPHILS (M) % 57 % (39-77); SMUDGE%M 36 % (0-0)
[2018-05-16] MEDS: DIVALPROEX SPRINKLE 125 MG CAP PO ×4 (08:35→21:06)
[2018-05-16] MEDS: PHENOBARBITAL 32.4 MG TAB PO (08:35)
[2018-05-16] MEDS: FAMOTIDINE 20 MG INJ IV (08:35)
[2018-05-16] MEDS: ASPIRIN 81 MG TAB PO (08:35)
[2018-05-16] MEDS: PHENYTOIN (100 MG/4 ML) CUP NGT ×2 (08:35→21:06)
[2018-05-16 10:10] LABS: ANISOCYTOSIS 1+ (0-0); BAND NEUTROPHILS #M 5.6 10^3/ul (0.0-0.6); BAND NEUTROPHILS % (M) 38 % (0-4); BASOPHIL #M 0.2 10^3/ul (0.0-0.0); BASOPHILS % (M) 2 % (0-2); BURR CELLS 2+ (0-0); EOSINOPHILS % (M) 9 % (0-7); LYMPHOCYTES #M 4.3 10^3/ul (0.8-2.9); LYMPHOCYTES % (M) 29 % (15-51); MICROCYTOSIS 1+ (0-0); MONOCYTE #M 0.2 10^3/ul (0.3-0.9); MONOCYTES % (M) 2 % (0-11); PLATELET ESTIMATE NORMAL; POIKILOCYTOSIS 3+ (0-0); POLYCHROMASIA 1+ (0-0); REACTIVE LYMPHOCYTES #M 0.1 10^3/ul (0.0-0.0); REACTIVE LYMPHOCYTES% (M) 1 % (0-0); SEG NEUT #M 3.7 10^3/ul (1.6-7.5); SEGMENTED NEUTROPHILS (M) % 19 % (39-77); SMUDGE%M 69 % (0-0)
[2018-05-16] MEDS: EPOETIN ALFA (NESRD) 3,000 UNITS/ML VIAL SC (10:17)
[2018-05-16] MEDS: TPN 1,000 ML IV ×2 (10:17→22:53)
[2018-05-16 12:27] LABS: HEMATOCRIT 22.7 % (42.0-52.0); HEMOGLOBIN 7.3 g/dl (14.0-18.0)
[2018-05-16] MEDS: morphine 2 MG INJ IV ×2 (13:11→23:43)
[2018-05-16] MEDS: VANCOMYCIN 1 GM 250 ML IVPB (16:45)
[2018-05-16] MEDS: ATORVASTATIN 20 MG TAB PO (21:06)
[2018-05-17] MEDS: ACCU-CHEK XX ×6 (00:56→21:09)
[2018-05-17] MEDS: PIPER-TAZO 3.375 GM IV (PMX) 100 ML IVPB ×3 (05:33→22:06)
[2018-05-17 05:46] LABS: ABNORMAL IP MESSAGE 1; HEMATOCRIT 19.1 % (42.0-52.0); MEAN CORPUSCULAR HEMOGLOBIN 32.5 pg (29.0-33.0); MEAN CORPUSCULAR HGB CONC 32.5 g/dl (32.0-37.0); PLATELET COUNT 197 10^3/UL (140-415); POSITIVE DIFF @See below; RED BLOOD COUNT 1.91 10^6/ul (4.70-6.10); RED CELL DISTRIBUTION WIDTH 13.4 % (11.5-14.5)
[2018-05-17 06:18] LABS: ADD MAN DIFF? YES; HEMOGLOBIN 6.2 g/dl (14.0-18.0); MAGNESIUM 1.9 mg/dl (1.7-2.5)
[2018-05-17 06:18] LABS: PHOSPHORUS 3.9 mg/dl (2.5-4.9)
[2018-05-17 06:24] LABS: ALANINE AMINOTRANSFERASE 59 IU/L (13-69); ALBUMIN 2.8 g/dl (3.3-4.9); ALBUMIN/GLOBULIN RATIO 0.87; ALKALINE PHOSPHATASE 136 IU/L (42-121); ANION GAP 11 (8-16); ASPARTATE AMINO TRANSFERASE 148 IU/L (15-46); BLOOD UREA NITROGEN 41 mg/dl (7-20); CALCIUM 8.2 mg/dl (8.4-10.2); CARBON DIOXIDE 26 mmol/L (21-31); CHLORIDE 102 mmol/L (97-110); CREATININE 1.67 mg/dl (0.61-1.24); GLUCOSE 118 mg/dl (70-220); POTASSIUM 4.5 mmol/L (3.5-5.1); SODIUM 134 mmol/L (135-144)
[2018-05-17 08:24] LABS: ANISOCYTOSIS 1+ (0-0); BAND NEUTROPHILS #M 0.7 10^3/ul (0.0-0.6); BAND NEUTROPHILS % (M) 7 % (0-4); EOSINOPHILS % (M) 3 % (0-7); GIANT THROMBO% (M) 2 % (0-0); LYMPHOCYTES #M 0.6 10^3/ul (0.8-2.9); LYMPHOCYTES % (M) 6 % (15-51); MONOCYTE #M 0.5 10^3/ul (0.3-0.9); MONOCYTES % (M) 5 % (0-11); PLATELET ESTIMATE NORMAL; POLYCHROMASIA 1+ (0-0); SEGMENTED NEUTROPHILS (M) % 79 % (39-77); SMUDGE%M 6 % (0-0)
[2018-05-17] MEDS: ASPIRIN 81 MG TAB PO (08:41)
[2018-05-17] MEDS: PHENYTOIN (100 MG/4 ML) CUP NGT ×2 (08:49→22:06)
[2018-05-17] MEDS: DIVALPROEX SPRINKLE 125 MG CAP PO ×4 (08:50→22:06)
[2018-05-17] MEDS: FAMOTIDINE 20 MG INJ IV (08:50)
[2018-05-17] MEDS: PHENOBARBITAL 32.4 MG TAB PO (08:50)
[2018-05-17 08:58] LABS: HEMATOCRIT 18.9 % (42.0-52.0)
[2018-05-17 09:11] LABS: HEMOGLOBIN 6.1 g/dl (14.0-18.0)
[2018-05-17] MEDS: TPN 1,000 ML IV (11:50)
[2018-05-17] MEDS: VANCOMYCIN 1 GM 250 ML IVPB (15:58)
[2018-05-17] MEDS: ATORVASTATIN 20 MG TAB PO (22:05)
[2018-05-18] MEDS: ACCU-CHEK XX ×6 (00:54→21:00)
[2018-05-18] MEDS: TPN 1,000 ML IV ×2 (00:54→14:05)
[2018-05-18] MEDS: PIPER-TAZO 3.375 GM IV (PMX) 100 ML IVPB ×3 (05:12→22:06)
[2018-05-18 06:10] LABS: ANION GAP 13 (8-16); BLOOD UREA NITROGEN 46 mg/dl (7-20); CALCIUM 8.2 mg/dl (8.4-10.2); CARBON DIOXIDE 25 mmol/L (21-31); CHLORIDE 104 mmol/L (97-110); CREATININE 1.75 mg/dl (0.61-1.24); GLUCOSE 102 mg/dl (70-220); MAGNESIUM 2.1 mg/dl (1.7-2.5); PHOSPHORUS 4.6 mg/dl (2.5-4.9); POTASSIUM 4.1 mmol/L (3.5-5.1); SODIUM 138 mmol/L (135-144)
[2018-05-18] MEDS: FAMOTIDINE 20 MG INJ IV (09:37)
[2018-05-18] MEDS: PHENOBARBITAL 32.4 MG TAB PO (09:40)
[2018-05-18] MEDS: PHENYTOIN (100 MG/4 ML) CUP NGT ×2 (09:40→21:43)
[2018-05-18] MEDS: DIVALPROEX SPRINKLE 125 MG CAP PO ×4 (09:40→21:49)
[2018-05-18] MEDS: ASPIRIN 81 MG TAB PO (09:40)
[2018-05-18 16:07] LABS: AMMONIA 22 umol/l (9-30)
[2018-05-18 16:41] LABS: VANCOMYCIN,TROUGH 23.1 ug/ml (10.0-20.0)
[2018-05-18] MEDS: SOD FERRIC GLUC COMPLX 125 MG in SOD CHLORIDE 0.9% 100 ML IVPB (17:25)
[2018-05-18] MEDS: ATORVASTATIN 20 MG TAB PO (21:43)
[2018-05-19] MEDS: ACCU-CHEK XX ×5 (01:00→16:55)
[2018-05-19] MEDS: TPN 1,000 ML IV ×3 (04:19→16:46)
[2018-05-19 05:33] LABS: ADD MAN DIFF? NO
[2018-05-19 05:35] LABS: BASOPHILS % 0.3 % (0.0-2.0); EOSINOPHILS # 0.2 10^3/ul (0.0-0.5); EOSINOPHILS % 3.5 % (0.0-7.0); HEMOGLOBIN 7.2 g/dl (14.0-18.0); LYMPHOCYTES # 0.8 10^3/ul (0.8-2.9); LYMPHOCYTES % 13.6 % (15.0-51.0); MEAN CORPUSCULAR HEMOGLOBIN 32.4 pg (29.0-33.0); MEAN CORPUSCULAR HGB CONC 32.7 g/dl (32.0-37.0); MEAN CORPUSCULAR VOLUME 99.1 fl (82.0-101.0); MEAN PLATELET VOLUME 9.7 fl (7.4-10.4); MONOCYTE # 0.5 10^3/ul (0.3-0.9); MONOCYTES % 7.8 % (0.0-11.0); NEUTROPHIL # 4.5 10^3/ul (1.6-7.5); NEUTROPHILS % 74.3 % (39.0-77.0); PLATELET COUNT 281 10^3/UL (140-415); RED BLOOD COUNT 2.22 10^6/ul (4.70-6.10); RED CELL DISTRIBUTION WIDTH 13.2 % (11.5-14.5)
[2018-05-19] MEDS: PIPER-TAZO 3.375 GM IV (PMX) 100 ML IVPB ×2 (05:42→14:25)
[2018-05-19 05:54] LABS: ANION GAP 10 (8-16); BLOOD UREA NITROGEN 44 mg/dl (7-20); CALCIUM 8.4 mg/dl (8.4-10.2); CARBON DIOXIDE 25 mmol/L (21-31); CHLORIDE 106 mmol/L (97-110); CREATININE 1.58 mg/dl (0.61-1.24); GLUCOSE 110 mg/dl (70-220); MAGNESIUM 2.1 mg/dl (1.7-2.5); PHOSPHORUS 3.3 mg/dl (2.5-4.9); SODIUM 137 mmol/L (135-144)
[2018-05-19 06:18] LABS: AMMONIA 15 umol/l (9-30)
[2018-05-19] MEDS: PHENOBARBITAL 32.4 MG TAB PO (09:02)
[2018-05-19] MEDS: FAMOTIDINE 20 MG INJ IV (09:02)
[2018-05-19] MEDS: DIVALPROEX SPRINKLE 125 MG CAP PO ×3 (09:02→16:55)
[2018-05-19] MEDS: ASPIRIN 81 MG TAB PO (09:02)
[2018-05-19] MEDS: PHENYTOIN (100 MG/4 ML) CUP NGT (09:02)
[2018-05-19] MEDS ORDERED: ALTEPLASE (CATHFLO) 2 MG INJ CATHETER (11:00)
[2018-05-19] MEDS: ALTEPLASE (CATHFLO) 2 MG INJ CATHETER ×3 (13:19→14:09)
[2018-05-19] MEDS ORDERED: VANCOMYCIN 1.25 GM in SOD CHLORIDE 0.9% 250 ML IVPB (16:00)
[2018-05-19] MEDS: SOD FERRIC GLUC COMPLX 125 MG in SOD CHLORIDE 0.9% 100 ML IVPB (16:43)
== END 2018-05-20 01:15 | disposition expired | DRG 871 ==
LOC: PP2 05-18 18:35 → E/R 22:52 → TEL 05-10 02:10 → 6WM 05-12 17:41 → ICU 05-10 04:59
PROC: 02HV33Z Insertion of Infusion Device into Superior Vena Cava, Percutaneous Approach (ICD-10-PCS; principal; 2018-05-10)
DX: A41.9 Sepsis, unspecified organism (principal); R65.21 Severe sepsis with septic shock; G93.41 Metabolic encephalopathy; J96.91 Respiratory failure, unspecified with hypoxia; I21.A1 Myocardial infarction type 2; J69.0 Pneumonitis due to inhalation of food and vomit; N17.9 Acute kidney failure, unspecified; E87.2 Acidosis; E87.0 Hyperosmolality and hypernatremia; I69.354 Hemiplegia and hemiparesis following cerebral infarction affecting left non-dominant side; I42.9 Cardiomyopathy, unspecified; K92.2 Gastrointestinal hemorrhage, unspecified; D62 Acute posthemorrhagic anemia; E78.5 Hyperlipidemia, unspecified; G40.909 Epilepsy, unspecified, not intractable, without status epilepticus; I25.10 Atherosclerotic heart disease of native coronary artery without angina pectoris; I12.9 Hypertensive chronic kidney disease with stage 1 through stage 4 chronic kidney disease, or unspecified chronic kidney disease; N18.9 Chronic kidney disease, unspecified; I69.391 Dysphagia following cerebral infarction; R13.10 Dysphagia, unspecified; Z66 Do not resuscitate; Z87.891 Personal history of nicotine dependence
CPT/HCPCS: 36569; 36600; 70450; 71045; 76705; 76937; 80048; 80053; 80061; 80164; 80185; 80202; 81001; 81003; 82043; 82140; 82550; 82553; 82803; 82962; 83036; 83540; 83605; 83735; 84100; 84134; 84155; 84300; 84443; 84478; 84484; 85014; 85018; 85025; 85610; 85730; 87040; 87081; 87086; 92526; 92610; 93005; 93306; 95819